=== PATIENT | male | born 1985 | race African-American/Black ===

== ENCOUNTER 2016-12-04 06:47 | Emergency (ER) | payer BC ==
[~2016-12-04] VITALS: Ht 188 cm; Wt 145.1 kg
[2016-12-04 07:15] VITALS: BP 175/111
[2016-12-04] MEDS ORDERED: TRAM-29 PO (07:32)
[2016-12-04] MEDS ORDERED: SULF1TAB24 PO (07:32)
--- NOTE | 2016-12-04 07:32 | PHYS DOC ---
Past Medical History Past Medical History: Hypertension Additional Past Medical Histor: SLEEP APNEA Past Surgical History: No Surgical History Smoking: Less than 1pk/day Alcohol Use: None Drug Use: None Adult General Chief Complaint Chief Complaint: OTHER COMPLAINTS HPI HPI Patient is a 31 year old male who presents with an abscess on the back of his neck for the last 3-4 days. He states that his fiance tried to open it, but only blood came out. He denies any fever or spontaneous drainage from the wound. He has had abscesses in the past, but states that this one is different, because it feels hard without a soft spot or head to open. He does not have a PCP. Review of Systems Review of Systems Constitutional: Denies fever or chills. [] Musculoskeletal: Denies back pain or joint pain. [] Integument: Denies rash or skin lesions. Reports neck abscess. Neurologic: Denies headache, focal weakness or sensory changes. [] Allergies Allergies Allergies Coded Allergies Type Severity Reaction Last Updated Verified No Known Drug Allergies 09/13/15 No Physical Exam Physical Exam Constitutional: Well developed, well nourished, no acute distress, non-toxic appearance. [] HENT: Normocephalic, atraumatic, oropharynx moist. [] Eyes: PERRLA, EOMI, conjunctiva normal, no discharge. [] Neck: Normal range of motion, left posterior tenderness, supple, no stridor. [] Skin: Warm, dry, no erythema, no rash. There is a 2cm indurated abscess on the left posterior neck without fluctuance or surrounding erythema. Back: No midline tenderness, no CVA tenderness. [] Extremities: No tenderness, ROM intact, no edema. Distal pulses equal bilaterally. [] Neurologic: Alert and oriented X 3, normal motor function, normal sensory function, no focal deficits noted. [] Psychologic: Affect normal, judgement normal, mood normal. [] Current Patient Data Vital Signs Vital Signs Date Time Temp Pulse Resp B/P Pulse Ox O2 Delivery O2 Flow Rate FiO2 12/04/16 07:15 97.9 72 20 99 Room Air 97.9 EKG EKG [] Radiology/Procedures Radiology/Procedures [] Course & Med Decision Making Course & Med Decision Making Pertinent Labs and Imaging studies reviewed. (See chart for details) [] Dragon Disclaimer Dragon Disclaimer This electronic medical record was generated, in whole or in part, using a voice recognition dictation system. Departure Departure Impression: Primary Impression: Neck abscess Disposition: 01 HOME, SELF-CARE Condition: STABLE Referrals: NO PCP (PCP) Patient Instructions: Abscess, [id number] Additional Instructions: Your abscess does not appear to be ready to open today. Please complete all of the prescribed antibiotics, even if the wound is improving. Please apply warm compresses to the wound to encourage it to drain. Follow up with a primary care provider or return to the emergency department if the wound is not improving after 2-3 days of treatment, if it is getting worse, or if you have any other new or concerning symptoms. Scripts Tramadol Hcl (Ultram)50 Mg [id number] Mg PO Q6H PRN PAIN #20 TAB Prov:ARSALAN JADE 12/04/16 Sulfamethoxazole/Trimethoprim (Bactrim Ds Tablet)1 Each Tablet1 Tab PO BID 10 Days Prov:ARSALAN JADE 12/04/16 ARSALAN JADE Dec 04, 2016 07:32
== END 2016-12-04 07:44 | disposition home or self-care (01) ==
LOC: ER 06:47
DX: L02.11 Cutaneous abscess of neck (principal); I10 Essential (primary) hypertension; G47.30 Sleep apnea, unspecified; F17.200 Nicotine dependence, unspecified, uncomplicated
CPT/HCPCS: 99283

== ENCOUNTER 2017-02-13 06:08 | Emergency (ER) | payer BC ==
[~2017-02-13] VITALS: Ht 188 cm; Wt 122.5 kg
[~2017-02-13 06:08] MED LIST: SULF1TAB24 PO; TRAM-29 PO
[2017-02-13 06:22] VITALS: BP 165/94
[2017-02-13] MEDS ORDERED: LIDOCAINE 1% / SOD BICARB 8.4% 20 ML VIAL. IJ ONE ×2 (06:30→06:45)
[2017-02-13] MEDS ORDERED: HYDR-971 PO (06:36)
[2017-02-13] MEDS ORDERED: SULF1TAB24 PO (06:36)
--- NOTE | 2017-02-13 06:37 | PHYS DOC ---
Past Medical History Past Medical History: Hypertension Additional Past Medical Histor: SLEEP APNEA Past Surgical History: No Surgical History Alcohol Use: None Drug Use: None Adult General Chief Complaint Chief Complaint: ABSCESS HPI HPI Patient is a 31 year old male who presents with abscess to his neck. He states he's had this for several months he was treated with antibiotics a couple months ago and then last night he noticed additional swelling and pain over the site. Denies any fevers chills nausea vomiting. He is unsure when his last tetanus shot was but he thinks his been greater than 5 years. Review of Systems Review of Systems Constitutional: Denies fever or chills [] Eyes: Denies change in visual acuity, redness, or eye pain [] HENT: Denies nasal congestion or sore throat [] Respiratory: Denies cough or shortness of breath [] Cardiovascular: No additional information not addressed in HPI [] GI: Denies abdominal pain, nausea, vomiting, bloody stools or diarrhea [] : Denies dysuria or hematuria [] Musculoskeletal: Denies back pain or joint pain [] Integument: Positive for abscess on left side and neck Neurologic: Denies headache, focal weakness or sensory changes [] Endocrine: Denies polyuria or polydipsia [] Current Medications Current Medications Current Medications Medications (Trade) Dose Ordered Sig/Charly Start Time Stop Time Status Last Admin Dose Admin Diphtheria/ Tetanus/Acell Pertussis (Boostrix) 0.5 ml ONCE ONCE 02/13/17 06:45 02/13/17 06:46 DC 02/13/17 06:40 0.5 ML Lidocaine/Sodium Bicarbonate (Buffered Lidocaine 1%) 20 ml 1X ONCE 02/13/17 06:45 02/13/17 06:46 DC 02/13/17 06:35 20 ML Allergies Allergies Allergies Coded Allergies Type Severity Reaction Last Updated Verified No Known Drug Allergies 09/13/15 No Physical Exam Physical Exam Constitutional: Well developed, well nourished, no acute distress, non-toxic appearance. [] HENT: Normocephalic, atraumatic, bilateral external ears normal, oropharynx moist, no oral exudates, nose normal. [] Eyes: PERRLA, EOMI, conjunctiva normal, no discharge. [] Neck: Normal range of motion, no tenderness, supple, no stridor. [] Cardiovascular:Heart rate regular rhythm, no murmur [] Lungs & Thorax: Bilateral breath sounds clear to auscultation [] Abdomen: Bowel sounds normal, soft, no tenderness, no masses, no pulsatile masses. [] Skin: 2 x 2 centimeter erythematous fluctuant mass on the left lower neck Back: No tenderness, no CVA tenderness. [] Extremities: No tenderness, no cyanosis, no clubbing, ROM intact, no edema. [] Neurologic: Alert and oriented X 3, normal motor function, normal sensory function, no focal deficits noted. [] Psychologic: Affect normal, judgement normal, mood normal. [] Current Patient Data Vital Signs Vital Signs Date Time Temp Pulse Resp B/P (MAP) Pulse Ox O2 Delivery O2 Flow Rate FiO2 02/13/17 06:22 98.6 71 18 94 Room Air 98.6 EKG EKG [] Radiology/Procedures Radiology/Procedures [] Impressions: soft tissue Abscess of neck Course & Med Decision Making Course & Med Decision Making Pertinent Labs and Imaging studies reviewed. (See chart for details) Abscess was drained and packed with iodoform gauze, patient being discharged with Beltrami and Bactrim for 7 days. Return precautions given. He is instructed return ER for 2 days for wound check. His tetanus was updated. Dragon Disclaimer Dragon Disclaimer This electronic medical record was generated, in whole or in part, using a voice recognition dictation system. Departure Departure Impression: Primary Impression: Neck abscess Disposition: 01 HOME, SELF-CARE Condition: STABLE Referrals: NO PCP (PCP) Patient Instructions: Abscess, Care After Additional Instructions: We drained and packed your abscess. You will need to leave and the drain material for 2 days and then return to the ER for reevaluation. We might need to open the abscess again and repack it however at that time we will make that determination. Your being discharged with antibiotics for an days and pain medicine. If he develops high fevers, pain or other concerns please return the ER sooner. In approximately 2 weeks after everything's completely healed, you can use Hibiclens as a body wash to help prevent this. You apply it in the shower as regular soap and let it soak for approximately 5-10 minutes and then wash it off he can do this every other day for 3 days in a row. You can purchases this at your local pharmacy. Scripts Sulfamethoxazole/Trimethoprim (BACTRIM DS TABLET) 1 Each Tablet 1 TAB PO BID, #14 TAB Prov: BRYANNA SUGGS MD 02/13/17 Hydrocodone/Apap 5-325 (NORCO 5-325 TABLET) 1 Each Tablet 1-2 TAB PO Q6HRS, #15 TAB Prov: BRYANNA SUGGS MD 02/13/17 Incision and Drainage Indication: abscess Procedure: The patient was positioned appropriately. Local anesthesia was for lidocaine. An incision was then made over the apex of the lesion and 5 ML's of purulent material was expressed. The drainage cavity was irrigated and packed with sterile gauze. The patients tetanus status updated as needed. The patient tolerated the procedure well. Complications: none. BRYANNA SUGGS MD February 13, 2017 06:37
[2017-02-13] MEDS ORDERED: DIPHTH,PERTUSS(ACELL),TET TOX 0.5 ML DISP.SYRIN. VAX IM ONE (06:45)
== END 2017-02-13 06:59 | disposition home or self-care (01) ==
LOC: ER 06:08
DX: L02.11 Cutaneous abscess of neck (principal); I10 Essential (primary) hypertension; G47.30 Sleep apnea, unspecified
CPT/HCPCS: 10060; 87070; 87205; 90471; 90715; 99284-25

== ENCOUNTER 2017-02-16 17:31 | Emergency (ER) | payer BC ==
[~2017-02-16] VITALS: Ht 190.5 cm; Wt 122.5 kg
[~2017-02-16 17:31] MED LIST changes: +HYDR-971 PO
[2017-02-16 18:05] VITALS: BP 152/98
--- NOTE | 2017-02-16 18:58 | PHYS DOC ---
Past Medical History Past Medical History: Hypertension Additional Past Medical Histor: SLEEP APNEA Past Surgical History: No Surgical History Alcohol Use: None Drug Use: None Adult General Chief Complaint Chief Complaint: WOUND CHECK HPI HPI Patient is a 31 year old male with history of hypertension who presents with left lateral neck abscess that was drained 3 days ago and is here for wound check. Patient states she is on antibiotics. Denies any issues with the abscess. Review of Systems Review of Systems Constitutional: Denies fever or chills [] Eyes: Denies change in visual acuity, redness, or eye pain [] HENT: Denies nasal congestion or sore throat [] Musculoskeletal: Denies back pain or joint pain [] Integument: left lateral neck abscess Neurologic: Denies headache, focal weakness or sensory changes [] Endocrine: Denies polyuria or polydipsia [] Allergies Allergies Allergies Coded Allergies Type Severity Reaction Last Updated Verified No Known Drug Allergies 09/13/15 No Physical Exam Physical Exam Constitutional: Well developed, well nourished, no acute distress, non-toxic appearance. [] HENT: Normocephalic, atraumatic, bilateral external ears normal, oropharynx moist, no oral exudates, nose normal. [] Skin: Left lateral neck with an open abscess with packing. The abscess is still draining. I did squeeze more pus from the abscess. Back: No tenderness, no CVA tenderness. [] Extremities: No tenderness, no cyanosis, no clubbing, ROM intact, no edema. [] Neurologic: Alert and oriented X 3, normal motor function, normal sensory function, no focal deficits noted. [] Psychologic: Affect normal, judgement normal, mood normal. [] Current Patient Data Vital Signs Vital Signs Date Time Temp Pulse Resp B/P (MAP) Pulse Ox O2 Delivery O2 Flow Rate FiO2 02/16/17 18:05 99.0 78 18 98 Room Air 99.0 EKG EKG [] Radiology/Procedures Radiology/Procedures Indication: abscess of the left lateral neck Procedure: The patient was positioned appropriately. Local anesthesia was N/A. mild amount of bloody material was expressed from the wound. The drainage cavity was irrigated and packed with sterile gauze. The patients tetanus status updated as needed. The patient tolerated the procedure well. Complications: none.[] Course & Med Decision Making Course & Med Decision Making Pertinent Labs and Imaging studies reviewed. (See chart for details) Patient is in the ED for wound check for an abscess that was drained 3 days ago. The abscess was still draining on arrival to the ED. I removed the packing and re- drained the area and repacked it again. He is to follow-up with the ED in 2 days for wound check. He is to continue taking his antibiotics. Dragon Disclaimer Dragon Disclaimer This electronic medical record was generated, in whole or in part, using a voice recognition dictation system. Departure Departure Impression: Primary Impression: Wound check, abscess Disposition: 01 HOME, SELF-CARE Condition: STABLE Referrals: NO PCP (PCP) Follow-up with the emergency room in 2 days for wound check and packing removal Patient Instructions: Abscess, Care After Additional Instructions: You have an abscess on the left lateral neck that was drained 3 days ago. We did repack it today. Keep the area clean and dry. Come back in the ED in 2 days and will remove the packing. MIKI MORIN APRN February 16, 2017 18:58
== END 2017-02-16 19:04 | disposition home or self-care (01) ==
LOC: ER 17:31
DX: L02.11 Cutaneous abscess of neck (principal); I10 Essential (primary) hypertension; G47.30 Sleep apnea, unspecified
CPT/HCPCS: 10060; 96372; 99283-25

== ENCOUNTER 2017-04-15 15:56 | Emergency (ER) | payer BC ==
[~2017-04-15] VITALS: Ht 188 cm; Wt 122.5 kg
[~2017-04-15 15:56] MED LIST changes: -TRAM-29 PO; +TRAM-48 PO
[2017-04-15 16:03] VITALS: BP 145/84
[2017-04-15] MEDS ORDERED: LIDOCAINE 1% PF 2 ML VIAL. INJ ONE (16:15)
--- NOTE | 2017-04-15 16:21 | PHYS DOC ---
Past Medical History Past Medical History: Hypertension Additional Past Medical Histor: SLEEP APNEA Past Surgical History: No Surgical History Alcohol Use: None Drug Use: None Adult General Chief Complaint Chief Complaint: LACERATION/AVULSION HPI HPI Patient is a 31 year old male presents to the emergency department with complaints laceration left hand. Patient states he was using a perlite grinder to english concrete in his home when he cut his hand on the perlite grinder sustaining laceration. Assist obtained prior to arrival. Review of Systems Review of Systems Integument: Laceration left hand Current Medications Current Medications Current Medications Medications (Trade) Dose Ordered Sig/Charly Start Time Stop Time Status Last Admin Dose Admin Lidocaine HCl (Xylocaine-Mpf 1% Vial) 2 ml 1X ONCE 04/15/17 16:15 04/15/17 16:16 DC 04/15/17 16:09 2 ML Allergies Allergies Allergies Coded Allergies Type Severity Reaction Last Updated Verified No Known Drug Allergies 09/13/15 No Physical Exam Physical Exam Skin: Left hand, third MCP, 3 cm partial thickness laceration. Patient has full range of motion all digits without difficulty. Neurovascular intact distally. He has no bony tenderness on exam. Current Patient Data Vital Signs Vital Signs Date Time Temp Pulse Resp B/P (MAP) Pulse Ox O2 Delivery O2 Flow Rate FiO2 04/15/17 16:03 99.4 94 20 93 Room Air 99.4 EKG EKG [] Radiology/Procedures Radiology/Procedures Procedure note: Left hand laceration anesthetized with 1% lidocaine, 2 mL. Patient's hand was [] scrubbed with Betadine normal saline copiously irrigated with Betadine and normal saline. Wound edges were approximated with 3-0 Ethilon #5 simple interrupted sutures. The hand was dressed with a bulky bandage. Patient tolerated procedure well. Course & Med Decision Making Course & Med Decision Making Pertinent Labs and Imaging studies reviewed. (See chart for details) [] Dragon Disclaimer Dragon Disclaimer This electronic medical record was generated, in whole or in part, using a voice recognition dictation system. Departure Departure Impression: Primary Impression: Hand laceration Disposition: HOME, SELF-CARE Condition: STABLE Referrals: NO PCP (PCP) [facility] Patient Instructions: Sutured Wound Care Additional Instructions: Return to the emergency department in 10 days for suture removal. He may also follow-up with her primary care provider to have sutures removed. Problem Qualifiers Primary Impression: Hand laceration Encounter type: initial encounter Foreign body presence: without foreign body Laterality: left Qualified Codes: S61.412A - Laceration without foreign body of left hand, initial encounter TRAVIS RODRÍGUEZ [employer] Apr 15, 2017 16:21
== END 2017-04-15 16:27 | disposition home or self-care (01) ==
LOC: ER 15:56
DX: S61.412A Laceration without foreign body of left hand, initial encounter (principal); I10 Essential (primary) hypertension; G47.30 Sleep apnea, unspecified; W29.8XXA Contact with other powered hand tools and household machinery, initial encounter; Y93.89 Activity, other specified; Y99.8 Other external cause status; Y92.89 Other specified places as the place of occurrence of the external cause
CPT/HCPCS: 12002; 99283-25

== ENCOUNTER 2017-04-20 13:36 | Emergency (ER) | payer BC ==
[~2017-04-20] VITALS: Ht 188 cm; Wt 122.5 kg
[2017-04-20 14:42] LABS: BILIRUBIN,URINE NEGATIVE (NEG); GLUCOSE,URINE NEGATIVE (NEG); NITRITE,URINE NEGATIVE (NEG); PH,URINE 5.5; PROTEIN,URINE NEGATIVE (NEG-TRACE); UROBILINOGEN,URINE 0.2 mg/dL (0.2 mg/dL)
[2017-04-20 14:54] LABS: BACTERIA,URINE 0 /HPF (0-FEW); RBC,URINE 0 /HPF (0-2); WBC,URINE 0 /HPF (0-4)
[2017-04-20 15:29] LABS: BASO % 0 % (0-3); EOS % 2 % (0-3); HEMATOCRIT 44.6 % (39.0-53.0); HEMOGLOBIN 14.8 g/dL (13.0-17.5); LYMPH # 1.5 x10^3/uL (1.0-4.8); LYMPH % 23 % (24-48); MEAN CORPUSCULAR HEMOGLOBIN 29 pg (25-35); MEAN CORPUSCULAR HGB CONC 33 g/dL (31-37); MEAN CORPUSCULAR VOLUME 89 fL (79-100); MONO % 7 % (0-9); NEUT % 68 % (31-73); PLATELET COUNT 227 x10^3/uL (140-400); RED BLOOD COUNT 5.05 x10^6/uL (4.30-5.70); RED CELL DISTRIBUTION WIDTH 14.9 % (11.5-14.5); WHITE BLOOD COUNT 6.7 x10^3/uL (4.0-11.0)
[2017-04-20] MEDS ORDERED: IV NORMAL SALINE 1000ML BAG 1,000 ML IV SCH (15:30)
[2017-04-20 15:44] LABS: CALCIUM 8.8 mg/dL (8.5-10.1); CREATININE 1.3 mg/dL (0.7-1.3); GFR 76.9; POTASSIUM 3.6 mmol/L (3.5-5.1)
[2017-04-20 15:50] LABS: ALBUMIN 3.8 g/dL (3.4-5.0); ALBUMIN/GLOBULIN RATIO 0.9 (1.0-1.7); TOTAL BILIRUBIN 0.7 mg/dL (0.2-1.0); TOTAL PROTEIN 8.2 g/dL (6.4-8.2)
--- NOTE | 2017-04-20 16:17 | RAD ---
CT ABDOMEN AND PELVIS WITHOUT IV CONTRAST History: Midline abdominal pain. Comparison: None. Technique: Helical CT of the abdomen and pelvis was performed from the lung bases through the ischial tuberosities. Axial and coronal reconstructions were obtained. Abdomen Findings: The visualized lung bases are clear. Evaluation of visceral organs is limited without intravenous contrast. Cholelithiasis, including a stone in the gallbladder neck. No gallbladder wall thickening or pericholecystic fluid. 1.9 x 1.1 cm left adrenal medial limb nodule. 1.4 x 0.7 cm left adrenal lateral limb nodule. 2.7 x 1.5 cm right adrenal nodule. The liver is enlarged measuring 20.0 cm. It is otherwise normal. The spleen is normal. The pancreas is normal. Bilateral kidneys do not demonstrate focal abnormality. There is no hydronephrosis. Visualized loops of large and small bowel are normal. There is no evidence of bowel obstruction. The appendix is seen coursing into a right inguinal hernia (Amyand hernia). The appendix is borderline dilated but there are no periappendiceal inflammatory changes. Fat-containing left inguinal hernia. Fat stranding within a broad-based fat-containing umbilical hernia. There is no significant abdominal adenopathy. The abdominal aorta is normal in caliber. Pelvis findings: Urinary bladder is underdistended limiting evaluation. There is no free fluid. There is no significant pelvic or inguinal adenopathy. There is no acute bony abnormality. IMPRESSION: 1. Fat stranding within a broad-based fat-containing umbilical hernia. Findings can be seen with strangulated fat infarction.. 2. Right inguinal hernia containing the appendix (Amyand hernia). The appendix is borderline dilated but there are no periappendiceal inflammatory changes. Recommend clinical correlation with physical exam for point tenderness in this region. 3. Cholelithiasis, including a stone in the gallbladder neck. No gallbladder wall thickening or pericholecystic fluid. 4. Bilateral adrenal nodules which are incompletely evaluated on this noncontrast exam. Recommend adrenal protocol CT abdomen or MRI for full evaluation. 5. Hepatomegaly. CRITICAL findings: These findings were discussed with Dr. Ashraf via telephone at 4:14 PM on 04/20/2017. PQRS Compliance Statement: One or more of the following individualized dose reduction techniques were utilized for this examination: 1. Automated exposure control 2. Adjustment of the mA and/or kV according to patient size 3. Use of iterative reconstruction technique
--- NOTE | 2017-04-20 16:53 | PHYS DOC ---
Past Medical History Past Medical History: Hypertension Additional Past Medical Histor: SLEEP APNEA Past Surgical History: Other Additional Past Surgical Histo: left index finger Alcohol Use: Rarely Drug Use: None Adult General Chief Complaint Chief Complaint: ABDOMINAL PAIN HPI HPI Patient is a 31 year old male who presents ambulatory to the ED with the complaint of abdominal pain for 3 or 4 days. The pain will start in the middle of his abdomen and radiate out to both sides and around to his back. It starts as a mild pain that worsens to about an 8 last about 30 minutes and then goes away. With the pain he has no nausea or vomiting. He did have a couple of episodes of loose stools 2 nights ago but this has not been persistent. No blood in his stool or black stools. He's never had pain like this before. He's also had a couple episodes where he felt like he needed to urinate and then he couldn't urinate but then this morning he needed to urinate and "went for 3 minutes straight". No dysuria. His urine is "orange" in color. He also had a concern that last night he was unable to get an erection temporarily. Patient does not take any chronic medications. 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 The heat index is been around 100 lately. PCP none Review of Systems Review of Systems Constitutional: Denies fever or chills [] Eyes: Denies change in visual acuity, redness, or eye pain [] HENT: Denies nasal congestion or sore throat [] Respiratory: Denies cough or shortness of breath [] Cardiovascular: Denies chest pain GI: As in history of present illness : As in history of present illness Musculoskeletal: Denies musculoskeletal back pain or joint pain [] Integument: Denies rash or skin lesions [] Neurologic: Denies headache, focal weakness or sensory changes [] Current Medications Current Medications Current Medications Medications (Trade) Dose Ordered Sig/Charly Start Time Stop Time Status Last Admin Dose Admin Ketorolac Tromethamine (Toradol) 30 mg 1X ONCE 04/20/17 17:00 04/20/17 17:01 DC 04/20/17 17:06 30 MG Sodium Chloride 1,000 ml @ 1,000 mls/hr Q1H 04/20/17 15:30 04/20/17 16:29 DC 04/20/17 15:21 1,000 MLS/HR Allergies Allergies Allergies Coded Allergies Type Severity Reaction Last Updated Verified No Known Drug Allergies 09/13/15 No Physical Exam Physical Exam Constitutional: Well developed, well nourished, no acute distress, non-toxic appearance. Alert, mentating normally, no acute distress. HENT: Normocephalic, atraumatic, bilateral external ears normal, nose normal. [ ] Eyes: conjunctiva normal, no discharge. [] Neck: Normal range of motion, no stridor. [] Cardiovascular:Heart rate regular rhythm, no murmur [] Lungs & Thorax: Bilateral breath sounds clear to auscultation [] Abdomen: Moderately obese, soft, entirely nontender to palpation, no masses, no pulsatile mass, no rebound or guarding. A relatively small, reducible umbilical hernia is palpable but nontender. Skin: Warm, dry, no erythema, no rash. [] Extremities: No tenderness, no cyanosis, no clubbing, ROM intact, no edema. [] Neurologic: Alert and oriented X 3, normal motor function, normal sensory function, no focal deficits noted. [] Current Patient Data Vital Signs Vital Signs Date Time Temp Pulse Resp B/P (MAP) Pulse Ox O2 Delivery O2 Flow Rate FiO2 04/20/17 17:06 60 143/84 (103) 97 Room Air 04/20/17 16:36 20 04/20/17 13:50 98.2 98.2 Lab Values Laboratory Tests Test 04/20/17 14:20 04/20/17 15:10 Urine Collection Type Unknown Urine Color Yellow Urine Clarity Cloudy Urine pH 5.5 Urine Specific [place] 1.025 Urine Protein Negative mg/dL (NEG-TRACE) Urine Glucose (UA) Negative mg/dL (NEG) Urine Ketones (Stick) Negative mg/dL (NEG) Urine Blood Small (NEG) Urine Nitrite Negative (NEG) Urine Bilirubin Negative (NEG) Urine Urobilinogen Dipstick 0.2 mg/dL (0.2 mg/dL) Urine Leukocyte Esterase Negative (NEG) Urine RBC 0 /HPF (0-2) Urine WBC 0 /HPF (0-4) Urine Amorphous Sediment Present /HPF Urine Bacteria 0 /HPF (0-FEW) Urine Hyaline Casts Moderate /HPF Urine Mucus Marked /LPF White Blood Count 6.7 x10^3/uL (4.0-11.0) Red Blood Count 5.05 x10^6/uL (4.30-5.70) Hemoglobin 14.8 g/dL (13.0-17.5) Hematocrit 44.6 % (39.0-53.0) Mean Corpuscular Volume 89 fL (79-100) Mean Corpuscular Hemoglobin 29 pg (25-35) Mean Corpuscular Hemoglobin Concent 33 g/dL (31-37) Red Cell Distribution Width 14.9 % (11.5-14.5) H Platelet Count 227 x10^3/uL (140-400) Neutrophils (%) (Auto) 68 % (31-73) Lymphocytes (%) (Auto) 23 % (24-48) L Monocytes (%) (Auto) 7 % (0-9) Eosinophils (%) (Auto) 2 % (0-3) Basophils (%) (Auto) 0 % (0-3) Neutrophils # (Auto) 4.5 x10^3uL (1.8-7.7) Lymphocytes # (Auto) 1.5 x10^3/uL (1.0-4.8) Monocytes # (Auto) 0.5 x10^3/uL (0.0-1.1) Eosinophils # (Auto) 0.1 x10^3/uL (0.0-0.7) Basophils # (Auto) 0.0 x10^3/uL (0.0-0.2) Sodium Level 143 mmol/L (136-145) Potassium Level 3.6 mmol/L (3.5-5.1) Chloride Level 102 mmol/L (98-107) Carbon Dioxide Level 35 mmol/L (21-32) H Anion Gap 6 (6-14) Blood Urea Nitrogen 18 mg/dL (8-26) Creatinine 1.3 mg/dL (0.7-1.3) Estimated GFR (Cockcroft-Gault) 76.9 BUN/Creatinine Ratio 14 (6-20) Glucose Level 101 mg/dL (70-99) H Calcium Level 8.8 mg/dL (8.5-10.1) Total Bilirubin 0.7 mg/dL (0.2-1.0) Aspartate Amino Transferase (AST) 39 U/L (15-37) H Alanine Aminotransferase (ALT) 30 U/L (16-63) Alkaline Phosphatase 74 U/L (46-116) Total Protein 8.2 g/dL (6.4-8.2) Albumin 3.8 g/dL (3.4-5.0) Albumin/Globulin Ratio 0.9 (1.0-1.7) L Lipase 104 U/L (73-393) Laboratory Tests 04/20/17 15:10 Laboratory Tests 04/20/17 15:10 EKG EKG [] Radiology/Procedures Radiology/Procedures CT scan of the abdomen and pelvis read by the radiologist who called me to discuss the results. The patient has an umbilical hernia with a small amount of fat contained in it, but no bowel. It appears that there may be some strangulation of the fat in the umbilical hernia. There is no evidence of bowel obstruction. There is also a right inguinal hernia that does not appear acute or strangulated but does interestingly have the appendix in the right inguinal hernia. Overall the CT scan is benign without acute findings. [] Course & Med Decision Making Course & Med Decision Making Pertinent Labs and Imaging studies reviewed. (See chart for details) 31-year-old male presents with episodic abdominal pain that wraps around his abdomen from the midline. CT scan shows likely strangulated fat in a small umbilical hernia which is likely the cause of his pain in my opinion. The patient rested comfortably in the ED in no acute distress. Discussed the case with Dr. Manning, general surgery. We agreed that the patient does not require any kind of emergent surgical intervention and does not require admission. He will be glad to see the patient back in the office to follow up his newly diagnosed hernias. I discussed the situation with the patient. He is comfortable with outpatient follow-up. He was aware of his umbilical hernia but not of his inguinal hernia. He states he has had more of a bulge in his umbilical hernia from time to time but he is always able to easily reduce it by laying down. Return precautions were given. [] Dragon Disclaimer Dragon Disclaimer This electronic medical record was generated, in whole or in part, using a voice recognition dictation system. Departure Departure Impression: Primary Impression: Abdominal pain Additional Impressions: Umbilical hernia Right inguinal hernia Disposition: HOME, SELF-CARE Condition: STABLE Referrals: NO PCP (PCP) DAVIS MANNING MD Patient Instructions: Hernia, [id number] Additional Instructions: As we discussed, your CT scan showed an umbilical hernia with fat in the hernia , which is likely the cause of your pain that is coming and going. This is not particularly dangerous but will hurt off and on for several days. Use a heating pad and also ibuprofen 800 mg every 8 hours for pain and inflammation. Also, your CT scan showed a right inguinal hernia. This is a hernia in the groin area. This did not seem to be causing any problem today. Both of these hernias can cause a problem where your intestine can get stuck and can be very serious. For this reason, you need to follow-up with the cycle specialist to talk about whether they recommend fixing the hernias. Problem Qualifiers DELICIA MADDEN MD Apr 20, 2017 16:53
[2017-04-20] MEDS ORDERED: KETOROLAC TROMETHAMINE 30 MG/ML INJ. IV ONE (17:00)
[2017-04-20 17:06] VITALS: BP 143/84
== END 2017-04-20 17:10 | disposition home or self-care (01) ==
LOC: ER 13:36
DX: K42.9 Umbilical hernia without obstruction or gangrene (principal); K40.90 Unilateral inguinal hernia, without obstruction or gangrene, not specified as recurrent; I10 Essential (primary) hypertension
CPT/HCPCS: 36415; 74176; 80053; 81001; 83690; 85027; 96361; 96374; 99285; J1885; J7030

== ENCOUNTER 2017-08-09 07:45 | Emergency (ER) | payer BC ==
[2017-08-09 07:50] VITALS: BP 168/97
[2017-08-09] MEDS ORDERED: CARB-117 OT (08:10)
--- NOTE | 2017-08-09 08:10 | PHYS DOC ---
Past Medical History Past Medical History: Hypertension Additional Past Medical Histor: SLEEP APNEA Past Surgical History: Other Additional Past Surgical Histo: left index finger Alcohol Use: Rarely Drug Use: None Adult General Chief Complaint Chief Complaint: EARACHE/EAR PAIN [facility] HPI Patient is a 31 year old male presents to the ED complaining of right ear pain x 2 days. States he feels like his ears clogged. History of cerumen impaction. States his ear feels full. Denies fever, headache, vision changes, nausea/ vomiting, sore throat, cough, chest pain or shortness of breath. Review of Systems Review of Systems Constitutional: Denies fever or chills [] Eyes: Denies change in visual acuity, redness, or eye pain [] HENT: Complains of ear pain. Denies nasal congestion or sore throat [] Respiratory: Denies cough or shortness of breath [] Cardiovascular: No additional information not addressed in HPI [] GI: Denies abdominal pain, nausea, vomiting, bloody stools or diarrhea [] : Denies dysuria or hematuria [] Musculoskeletal: Denies back pain or joint pain [] Integument: Denies rash or skin lesions [] Neurologic: Denies headache, focal weakness or sensory changes [] Endocrine: Denies polyuria or polydipsia [] All other systems were reviewed and found to be within normal limits, except as documented in this note. Allergies Allergies Allergies Coded Allergies Type Severity Reaction Last Updated Verified No Known Drug Allergies 09/13/15 No Physical Exam Physical Exam Constitutional: Well developed, well nourished, no acute distress, non-toxic appearance. [] HENT: Normocephalic, atraumatic, bilateral external ears normal, RIGHT EAR CERUMEN IMPACTION. oropharynx moist, no oral exudates, nose normal. [] Eyes: PERRLA, EOMI, conjunctiva normal, no discharge. [] Neck: Normal range of motion, no tenderness, supple, no stridor. [] Cardiovascular:Heart rate regular rhythm, no murmur [] Lungs & Thorax: Bilateral breath sounds clear to auscultation [] Abdomen: Bowel sounds normal, soft, no tenderness, no masses, no pulsatile masses. [] Skin: Warm, dry, no erythema, no rash. [] Back: No tenderness, no CVA tenderness. [] Extremities: No tenderness, no cyanosis, no clubbing, ROM intact, no edema. [] Neurologic: Alert and oriented X 3, normal motor function, normal sensory function, no focal deficits noted. [] Psychologic: Affect normal, judgement normal, mood normal. [] Current Patient Data Vital Signs Vital Signs Date Time Temp Pulse Resp B/P (MAP) Pulse Ox O2 Delivery O2 Flow Rate FiO2 08/09/17 07:50 97.8 76 16 97 Room Air 97.8 EKG EKG [] Radiology/Procedures Radiology/Procedures [] Course & Med Decision Making Course & Med Decision Making Pertinent Labs and Imaging studies reviewed. (See chart for details) [] Dragon Disclaimer Dragon Disclaimer This electronic medical record was generated, in whole or in part, using a voice recognition dictation system. Departure Departure Impression: Primary Impression: Cerumen impaction Disposition: 01 HOME, SELF-CARE Condition: STABLE Referrals: NO PCP (PCP) EMIGDIO POOLE MD Patient Instructions: Cerumen Impaction Scripts Carbamide Peroxide (Earwax Treatment Drops) 15 Ml Drops 15 ML OT 5XDAY for 4 Days, #1 DROP 5-10gtt in ear BID Prov: LESTER ARNETT 08/09/17 LESTER ARNETT Aug 09, 2017 08:10
== END 2017-08-09 08:22 | disposition home or self-care (01) ==
LOC: ER 07:45
DX: H61.21 Impacted cerumen, right ear (principal); I10 Essential (primary) hypertension
CPT/HCPCS: 99283

== ENCOUNTER 2017-11-09 17:31 | Emergency (ER) | payer BC | END 2017-11-09 20:04 | disposition home or self-care (01) | LOC: ER 20:04 | DX: S66.911A Strain of unspecified muscle, fascia and tendon at wrist and hand level, right hand, initial encounter (principal); I10 Essential (primary) hypertension; G47.30 Sleep apnea, unspecified; X58.XXXA Exposure to other specified factors, initial encounter; Y93.89 Activity, other specified; Y92.69 Other specified industrial and construction area as the place of occurrence of the external cause; Y99.8 Other external cause status | CPT/HCPCS: 73110; 99284 ==

== ENCOUNTER 2018-10-09 11:30 | Emergency (ER) | payer BC ==
[~2018-10-09] VITALS: Ht 188 cm; Wt 114.3 kg
[~2018-10-09 11:30] MED LIST changes: +CARB-117 OT; +HYDR-3164 PO; -HYDR-971 PO
[2018-10-09 11:45] VITALS: BP 146/87
[2018-10-09] MEDS ORDERED: SULF1TAB24 PO (12:29)
--- NOTE | 2018-10-09 12:30 | PHYS DOC ---
Past Medical History Past Medical History: Hypertension Additional Past Medical Histor: SLEEP APNEA Past Surgical History: Other Additional Past Surgical Histo: left index finger Alcohol Use: Rarely Drug Use: None Adult General Chief Complaint Chief Complaint: ABSCESS HPI HPI Patient is a 33 year old male with history of a patient who presents with an abscess on his pubic region that he has had for 3 years. Patient denies any drainage from the area. Denies any fever, denies any nausea vomiting. Review of Systems Review of Systems Constitutional: Denies fever or chills [] Musculoskeletal: Denies back pain or joint pain [] Integument: abscess on his pubic Neurologic: Denies headache, focal weakness or sensory changes [] All other systems were reviewed and found to be within normal limits, except as documented in this note. Allergies Allergies Allergies Coded Allergies Type Severity Reaction Last Updated Verified No Known Drug Allergies 09/13/15 No Physical Exam Physical Exam Constitutional: Well developed, well nourished, no acute distress, non-toxic appearance. [] Abdomen: Bowel sounds normal, soft, no tenderness, no masses, no pulsatile masses. [] Skin: Warm, dry, pubic region just below the abdominal flap with an area of induration approx. 3X1 cm with multiple scars consistent with previously drained. No drainage or redness to the area. No fluctuance. Back: No tenderness, no CVA tenderness. [] Extremities: No tenderness, no cyanosis, no clubbing, ROM intact, no edema. [] Neurologic: Alert and oriented X 3, normal motor function, normal sensory function, no focal deficits noted. [] Psychologic: Affect normal, judgement normal, mood normal. [] Current Patient Data Vital Signs Vital Signs Date Time Temp Pulse Resp B/P (MAP) Pulse Ox O2 Delivery O2 Flow Rate FiO2 10/09/18 11:45 98.1 80 16 146/87 (106) 97 Room Air 98.1 EKG EKG [] Radiology/Procedures Radiology/Procedures [] Course & Med Decision Making Course & Med Decision Making Pertinent Labs and Imaging studies reviewed. 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 There is no redness to the area today. No fluctuance. Talked to patient about I&D in the ED versus seeing a general surgeon to have them take care of this chronic abscess. Patient is not willing to have it drained in the ED. He states it's been drained multiple times before with no success because it keeps coming back. Provided him a general surgeon. Put him on Bactrim. Instructed him not to share of his pubic region with a straight razor anymore to prevent ingrown hairs. Tetanus up-to-date. Staff Physician Addendum: I was working in the ER during the course of this patient's visit. I was available for consultation as needed, but I was not directly involved in the care of this patient. Dragon Disclaimer Dragon Disclaimer This electronic medical record was generated, in whole or in part, using a voice recognition dictation system. Departure Departure Impression: Primary Impression: Abscess of pubic region Disposition: HOME, SELF-CARE Condition: STABLE Referrals: NO PCP (PCP) follow up next week TEDDY RIVERS MD Patient Instructions: Abscess Additional Instructions: You were seen with an abscess on the pubic region, contact the provided general surgeons on Thursday in follow-up. Do not shave the pubic region with a straight razor. Consider buying an electric razor. Scripts Sulfamethoxazole/Trimethoprim (BACTRIM DS TABLET) 1 Each Tablet 1 TAB PO BID, #20 TAB Prov: MIKI MORIN APRN 10/09/18 MIKI MORIN APRN Oct 09, 2018 12:30 CORA FARLEY MD Oct 09, 2018 15:34
== END 2018-10-09 12:54 | disposition home or self-care (01) ==
LOC: ER 11:30
DX: L02.211 Cutaneous abscess of abdominal wall (principal); I10 Essential (primary) hypertension; G47.30 Sleep apnea, unspecified
CPT/HCPCS: 99283

== ENCOUNTER 2018-11-23 09:56 | Inpatient (IN) | payer BC ==
[2018-11-23] VITALS (9 sets, daily range): BP systolic 110–176; BP diastolic 72–98
[~2018-11-23] VITALS: Ht 185.4 cm; Wt 121.1 kg
[2018-11-23] MEDS ORDERED: IV NORMAL SALINE 1000ML BAG 1,000 ML IV ONE (10:15)
[2018-11-23 10:25] LABS: BILIRUBIN,URINE NEGATIVE (NEG); CLARITY,URINE CLEAR; COLOR,URINE YELLOW; NITRITE,URINE NEGATIVE (NEG); PROTEIN,URINE NEGATIVE (NEG-TRACE); UROBILINOGEN,URINE 0.2 mg/dL (0.2 mg/dL)
--- NOTE | 2018-11-23 10:26 | PHYS DOC ---
Past Medical History Past Medical History: Hypertension Additional Past Medical Histor: SLEEP APNEA Past Surgical History: Other Additional Past Surgical Histo: left index finger Alcohol Use: Rarely Drug Use: None Adult General Chief Complaint Chief Complaint: ABDOMINAL PAIN HPI HPI 33-year-old male presents to ER for complaints of mid abdominal and right groin pain. Patient states around 6 AM this morning at work pain started. Patient states he has a history of hiatal and inguinal hernia has had similar pain in the past associated with the hernias. 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 Patient denies any nausea or vomiting, fever, or urinary symptoms. Patient states he did have small amount of loose stools this morning. Pt denies any OTC meds for pain. Review of Systems Review of Systems Constitutional: Denies fever or chills [] Respiratory: Denies cough or shortness of breath [] Cardiovascular: No additional information not addressed in HPI [] GI: Denies nausea, vomiting, bloody stools or diarrhea. Reports mid abd and rt groin pain : Denies dysuria or hematuria [] Musculoskeletal: Denies back pain or joint pain [] Integument: Denies rash or skin lesions [] Neurologic: Denies headache, focal weakness or sensory changes [] All other systems were reviewed and found to be within normal limits, except as documented in this note. Current Medications Current Medications Current Medications Medications (Trade) Dose Ordered Sig/Charly Start Time Stop Time Status Last Admin Dose Admin Bupivacaine HCl/ Epinephrine Bitart (Sensorcain-Mpf Epi 0.5%-[id number]) 30 ml STK-MED ONCE 11/23/18 13:18 11/23/18 13:19 DC Dexamethasone Sodium Phosphate (Decadron) 20 mg STK-MED ONCE 11/23/18 13:16 11/23/18 13:17 DC Fentanyl Citrate (Fentanyl 2ml Vial) 50 mcg PRN Q5MIN PRN 11/23/18 13:15 11/24/18 13:14 Fentanyl Citrate (Fentanyl 5ml Vial) 250 mcg STK-MED ONCE 11/23/18 13:19 11/23/18 13:20 DC Hydromorphone HCl (Dilaudid) 0.5 mg PRN Q10MIN PRN 11/23/18 13:15 11/24/18 13:14 Info (CONTRAST GIVEN -- Rx MONITORING) 1 each PRN DAILY PRN 11/23/18 11:00 11/23/18 13:12 DC Iohexol (Omnipaque 300 Mg/ml) 75 ml 1X ONCE 11/23/18 10:45 11/23/18 10:49 DC 11/23/18 10:45 75 ML Lidocaine HCl (Lidocaine Pf 2% Vial) 5 ml STK-MED ONCE 11/23/18 13:16 11/23/18 13:17 DC Lidocaine HCl (Xylocaine-Mpf 1% 2ml Vial) 2 ml PRN 1X PRN 11/23/18 13:15 11/24/18 13:14 Midazolam HCl (Versed) 2 mg STK-MED ONCE 11/23/18 13:19 11/23/18 13:20 DC Morphine Sulfate (Morphine Sulfate) 1 mg PRN Q10MIN PRN 11/23/18 13:15 11/24/18 13:14 Ondansetron HCl (Zofran) 4 mg STK-MED ONCE 11/23/18 13:16 11/23/18 13:19 DC Piperacillin Sod/ Tazobactam Sod 3.375 gm/Sodium Chloride 50 ml @ 100 mls/hr 1X ONCE 11/23/18 12:30 11/23/18 12:59 DC Prochlorperazine Edisylate (Compazine) 5 mg PACU PRN PRN 11/23/18 13:15 11/24/18 13:14 Propofol 20 ml @ As Directed STK-MED ONCE 11/23/18 13:16 11/23/18 13:17 DC Ringer's Solution 1,000 ml @ 30 mls/hr Q24H 11/23/18 13:11 11/24/18 01:10 Rocuronium [place] (Zemuron) 50 mg STK-MED ONCE 11/23/18 13:16 11/23/18 13:17 DC Sodium Chloride 1,000 ml @ 100 mls/hr Q10H 11/23/18 12:19 11/23/18 13:12 DC 11/23/18 12:48 100 MLS/HR Allergies Allergies Allergies Coded Allergies Type Severity Reaction Last Updated Verified No Known Drug Allergies 09/13/15 No Physical Exam Physical Exam Constitutional: Well developed, well nourished, no acute distress, non-toxic appearance. [] HENT: Normocephalic, atraumatic, oropharynx moist, nose normal. [] Eyes: Pupils equal, conjunctiva normal, no discharge. [] Neck: Normal range of motion, no tenderness, supple, no stridor. [] Cardiovascular: Heart rate regular rhythm, no murmur [] Lungs & Thorax: Bilateral breath sounds clear to auscultation [] Abdomen: Bowel sounds normal, soft- no distention/rigidity- tender on palp. mid umbilical without obvious hernia palpated, no rebound tenderness. No masses, no pulsatile masses. Palp. rt inguinal hernia tender on palp.- no crepitus. Gentle pressure applied- felt hernia reduce and pt reported instant relief in pain. No testicular/scrotal pain on palp. No lesions/penile discharge. Skin: Warm, dry, no erythema, no rash. [] Back: No tenderness, no CVA tenderness. [] Extremities: No tenderness, no cyanosis, no clubbing, ROM intact, no edema. [] Neurologic: Alert and oriented X 3, normal motor function, normal sensory function, no focal deficits noted. [] Psychologic: Affect normal, judgement normal, mood normal. [] Current Patient Data Vital Signs Vital Signs Date Time Temp Pulse Resp B/P (MAP) Pulse Ox O2 Delivery O2 Flow Rate FiO2 11/23/18 12:40 56 18 178/91 (120) 100 Room Air 11/23/18 10:11 98.2 98.2 Lab Values Laboratory Tests Test 11/23/18 10:06 11/23/18 10:30 Urine Collection Type Unknown Urine Color Yellow Urine Clarity Clear Urine pH 5.0 Urine Specific [place] 1.015 Urine Protein Negative mg/dL (NEG-TRACE) Urine Glucose (UA) Negative mg/dL (NEG) Urine Ketones (Stick) Negative mg/dL (NEG) Urine Blood Small (NEG) Urine Nitrite Negative (NEG) Urine Bilirubin Negative (NEG) Urine Urobilinogen Dipstick 0.2 mg/dL (0.2 mg/dL) Urine Leukocyte Esterase Negative (NEG) Urine RBC 1-2 /HPF (0-2) Urine WBC 0 /HPF (0-4) Urine Squamous Epithelial Cells Occ /LPF Urine Bacteria 0 /HPF (0-FEW) White Blood Count 5.1 x10^3/uL (4.0-11.0) Red Blood Count 4.42 x10^6/uL (4.30-5.70) Hemoglobin 13.0 g/dL (13.0-17.5) Hematocrit 39.1 % (39.0-53.0) Mean Corpuscular Volume 88 fL (79-100) Mean Corpuscular Hemoglobin 29 pg (25-35) Mean Corpuscular Hemoglobin Concent 33 g/dL (31-37) Red Cell Distribution Width 15.3 % (11.5-14.5) H Platelet Count 221 x10^3/uL (140-400) Neutrophils (%) (Auto) 63 % (31-73) Lymphocytes (%) (Auto) 27 % (24-48) Monocytes (%) (Auto) 6 % (0-9) Eosinophils (%) (Auto) 4 % (0-3) H Basophils (%) (Auto) 0 % (0-3) Neutrophils # (Auto) 3.2 x10^3uL (1.8-7.7) Lymphocytes # (Auto) 1.4 x10^3/uL (1.0-4.8) Monocytes # (Auto) 0.3 x10^3/uL (0.0-1.1) Eosinophils # (Auto) 0.2 x10^3/uL (0.0-0.7) Basophils # (Auto) 0.0 x10^3/uL (0.0-0.2) Sodium Level 140 mmol/L (136-145) Potassium Level 4.0 mmol/L (3.5-5.1) Chloride Level 104 mmol/L (98-107) Carbon Dioxide Level 30 mmol/L (21-32) Anion Gap 6 (6-14) Blood Urea Nitrogen 12 mg/dL (8-26) Creatinine 1.1 mg/dL (0.7-1.3) Estimated GFR (Cockcroft-Gault) 92.2 BUN/Creatinine Ratio 11 (6-20) Glucose Level 132 mg/dL (70-99) H Calcium Level 8.4 mg/dL (8.5-10.1) L Total Bilirubin 0.2 mg/dL (0.2-1.0) Aspartate Amino Transferase (AST) 22 U/L (15-37) Alanine Aminotransferase (ALT) 23 U/L (16-63) Alkaline Phosphatase 71 U/L (46-116) Total Protein 7.2 g/dL (6.4-8.2) Albumin 3.1 g/dL (3.4-5.0) L Albumin/Globulin Ratio 0.8 (1.0-1.7) L Laboratory Tests 11/23/18 10:30 Laboratory Tests 11/23/18 10:30 EKG EKG [] Radiology/Procedures Radiology/Procedures PROCEDURE: CT ABD PELV W/ IV CONTRST ONLY CT study of the abdomen and pelvis with contrast Clinical indications: Midabdominal pain and right groin pain. History of hernia. TECHNIQUE: After IV infusion of 75 cc of Omnipaque 300, helical CT scanning of the abdomen and pelvis was performed. PQRS compliance Statement One or more of the following individualized dose reduction techniques were utilized for this study: 1. Automated exposure control 2. Adjustment of the mA and/or kV according to patient size 3. Use of iterative reconstruction technique COMPARISON: April 20, 2017. FINDINGS: The liver and spleen and pancreas are unremarkable. Small gallstones are seen within the gallbladder. No gallbladder wall thickening is seen. No extrahepatic biliary ductal dilatation is seen. Bilateral adrenal hyperplasia is again evident. This is unchanged. No renal mass or hydronephrosis or hydroureter is seen. Urinary bladder wall is smooth. No focal aneurysmal dilatation of the abdominal aorta is seen. No enlarged abdominal or pelvic lymphadenopathy is seen. Right inguinal hernia is seen which contains the appendix. The appendix is mildly distended measuring up to 9 mm in caliber. There is mild wall thickening of the appendix. There is mild inflammatory change here within the hernia sac. Findings are consistent with mild appendicitis. The terminal ileum is unremarkable. No obstructive bowel pattern is evident. No free air or free fluid or mesenteric edema is seen. No lytic process is seen. No lung base consolidation is seen. IMPRESSION: Right inguinal hernia containing the appendix. There is mild distention of the appendix with mild wall thickening and mild periappendiceal inflammatory change consistent with mild appendicitis. No abscess or free fluid or bowel obstruction or free air is seen. Cholelithiasis. Electronically signed by: Betty Serrano MD (11/23/2018 11:53 AM) [facility] DICTATED and SIGNED BY: BETTY SERRANO MD DATE: 11/23/18 1142 Course & Med Decision Making Course & Med Decision Making Pertinent Labs and Imaging studies reviewed. (See chart for details) 1205: On reevaluation patient continues to deny any pain while at rest. Does continue to have mid umbilical pain on palpation. No rebound tenderness/abd distention or rigidity. Discussed test results with pt- CT showing a right inguinal hernia containing the appendix with mild distention of the appendix. WBCs were NL at 5.1 no bands. Discussed plans for admission. Patient has been offered pain medicine reports pain is tolerable if abdomen is not palpated. Patient remains nontoxic in appearance. Will talk with general surgery and discuss patient's case. 1225: Spoke with Dr. Rowan, gen. surgery and discussed pt's case. Will order dose of Zosyn and keep pt NPO. Will admit pt to hospitalist services with consult for Dr. Rowan with admit orders. 1235: Spoke with Dr. Rodgers, hospitalist and discussed pt's case and admit plan to their services. Dragon Disclaimer Dragon Disclaimer This electronic medical record was generated, in whole or in part, using a voice recognition dictation system. Departure Departure Impression: Primary Impression: Abdominal pain Additional Impression: Appendicitis Disposition: 09 ADMITTED INPATIENT Admitting Physician: Delfin Rodgers Condition: STABLE Referrals: NO PCP (PCP) Problem Qualifiers BEVERLY SIMS APRN Nov 23, 2018 10:26
[2018-11-23 10:30] LABS: SQUAMOUS EPITHELIAL CELL,UR OCC /LPF
[2018-11-23 10:31] LABS: BACTERIA,URINE 0 /HPF (0-FEW); WBC,URINE 0 /HPF (0-4)
[2018-11-23] MEDS ORDERED: IOHEXOL 300 MG/ML 100ML VIAL. IV ONE (10:45)
[2018-11-23 10:49] LABS: BASO % 0 % (0-3); EOS # 0.2 x10^3/uL (0.0-0.7); EOS % 4 % (0-3); HEMATOCRIT 39.1 % (39.0-53.0); LYMPH # 1.4 x10^3/uL (1.0-4.8); LYMPH % 27 % (24-48); MEAN CORPUSCULAR HEMOGLOBIN 29 pg (25-35); MEAN CORPUSCULAR HGB CONC 33 g/dL (31-37); MEAN CORPUSCULAR VOLUME 88 fL (79-100); MONO # 0.3 x10^3/uL (0.0-1.1); MONO % 6 % (0-9); NEUT # 3.2 x10^3uL (1.8-7.7); NEUT % 63 % (31-73); PLATELET COUNT 221 x10^3/uL (140-400); RED BLOOD COUNT 4.42 x10^6/uL (4.30-5.70); RED CELL DISTRIBUTION WIDTH 15.3 % (11.5-14.5); WHITE BLOOD COUNT 5.1 x10^3/uL (4.0-11.0)
[2018-11-23 10:53] LABS: CALCIUM 8.4 mg/dL (8.5-10.1); CREATININE 1.1 mg/dL (0.7-1.3); GFR 92.2
[2018-11-23 10:59] LABS: ALBUMIN 3.1 g/dL (3.4-5.0); ALBUMIN/GLOBULIN RATIO 0.8 (1.0-1.7); TOTAL BILIRUBIN 0.2 mg/dL (0.2-1.0); TOTAL PROTEIN 7.2 g/dL (6.4-8.2)
[2018-11-23] MEDS ORDERED: CONTRAST GIVEN. MC PRN (11:00)
--- NOTE | 2018-11-23 11:55 | RAD ---
CT study of the abdomen and pelvis with contrast Clinical indications: Midabdominal pain and right groin pain. History of hernia. TECHNIQUE: After IV infusion of 75 cc of Omnipaque 300, helical CT scanning of the abdomen and pelvis was performed. PQRS compliance Statement One or more of the following individualized dose reduction techniques were utilized for this study: 1. Automated exposure control 2. Adjustment of the mA and/or kV according to patient size 3. Use of iterative reconstruction technique COMPARISON: April 20, 2017. FINDINGS: The liver and spleen and pancreas are unremarkable. Small gallstones are seen within the gallbladder. No gallbladder wall thickening is seen. No extrahepatic biliary ductal dilatation is seen. Bilateral adrenal hyperplasia is again evident. This is unchanged. No renal mass or hydronephrosis or hydroureter is seen. Urinary bladder wall is smooth. No focal aneurysmal dilatation of the abdominal aorta is seen. No enlarged abdominal or pelvic lymphadenopathy is seen. Right inguinal hernia is seen which contains the appendix. The appendix is mildly distended measuring up to 9 mm in caliber. There is mild wall thickening of the appendix. There is mild inflammatory change here within the hernia sac. Findings are consistent with mild appendicitis. The terminal ileum is unremarkable. No obstructive bowel pattern is evident. No free air or free fluid or mesenteric edema is seen. No lytic process is seen. No lung base consolidation is seen. IMPRESSION: Right inguinal hernia containing the appendix. There is mild distention of the appendix with mild wall thickening and mild periappendiceal inflammatory change consistent with mild appendicitis. No abscess or free fluid or bowel obstruction or free air is seen. Cholelithiasis. Electronically signed by: Eliu Serrano MD (11/23/2018 11:53 AM) [facility]
[2018-11-23] MEDS ORDERED: PIPERACILLIN/TAZOBACTAM 3.375 GM in IV NORMAL SALINE 50ML 50 ML IV ONE (12:30)
[2018-11-23] MEDS ORDERED: ONDANSETRON PF 4 MG/2 ML VIAL. IV PRN ×2 (12:30→13:15)
[2018-11-23] MEDS: fentaNYL PF VIAL 100 MCG/2 ML VIAL IV PRN ×2 (12:39→17:45)
--- NOTE | 2018-11-23 12:43 | PDOC2 ---
CONSULT Date of Consult Date of Consult DATE: 11/23/18 TIME: 12:35 History of Present Illness Reason for Visit: The patient is a 33 year old male who reported to the ER with primarily periumbilical pain starting this morning. He has known about an umbilical and right inguinal hernia in the past and was planning repair at some point. He denies nausea or vomiting. He also denies fever or chills. The pain does not seem to radiate and remains persistent in the ER. Past Medical History Past Medical History HTN, YEVGENIY, obesity Past Surgical History Past Surgical History Finger surger Social History Quit (quit 3 weeks ago) Current Medications Current Medications Current Medications Sodium Chloride 1,000 ml @ 1,000 mls/hr 1X ONCE IV Last administered on at 10:35; Start 11/23/18 at 10:15; Stop 11/23/18 at 11:14; Status DC Iohexol (Omnipaque 300 Mg/ml) 75 ml 1X ONCE IV Last administered on 11/23/18at 10:45; Start 11/23/18 at 10:45; Stop 11/23/18 at 10:49; Status DC Info (CONTRAST GIVEN -- Rx MONITORING) 1 each PRN DAILY PRN MC SEE COMMENTS; Start 11/23/18 at 11:00; Stop 11/25/18 at 10:59 Piperacillin Sod/ Tazobactam Sod 3.375 gm/Sodium Chloride 50 ml @ 100 mls/hr 1X ONCE IV ; Start 11/23/18 at 12:30; Stop 11/23/18 at 12:59 Ondansetron HCl (Zofran) 4 mg PRN Q8HRS PRN IV NAUSEA/VOMITING; Start 11/23/18 at 12:30; Stop 11/24/18 at 12:29 Fentanyl Citrate (Fentanyl 2ml Vial) 50 mcg PRN Q2HR PRN IV PAIN; Start at 12:30; Stop 11/24/18 at 12:29 Sodium Chloride 1,000 ml @ 100 mls/hr Q10H IV ; Start 11/23/18 at 12:19; Stop 11/24/18 at 12:18 Active Scripts Active Bactrim Ds Tablet (Sulfamethoxazole/Trimethoprim) 1 Each Tablet 1 Tab PO BID Earwax Treatment Drops (Carbamide Peroxide) 15 Ml Drops 15 Ml OT 5XDAY 4 Days 5-10gtt in ear BID Bactrim Ds Tablet (Sulfamethoxazole/Trimethoprim) 1 Each Tablet 1 Tab PO BID [place] 5-325 Tablet (Acetaminophen/Hydrocodone Bitart) 1 Each Tablet 1-2 Tab PO Q6HRS Ultram (Tramadol Hcl) 50 Mg Tablet 50 Mg PO Q6H PRN Bactrim Ds Tablet (Sulfamethoxazole/Trimethoprim) 1 Each Tablet 1 Tab PO BID 10 Days Allergies Allergies: Coded Allergies: No Known Drug Allergies (Unverified , 09/13/15) ROS General: No: Chills, Night Sweats, Fatigue, Malaise, Appetite, Other PSYCHOLOGICAL ROS: No: Anxiety, Behavioral Disorder, Concentration difficultie , Decreased libido, Depression, Disorientation, Hallucinations, Hostility, Irritablity, Memory difficulties, Mood Swings, Obsessive thoughts, Physical abuse, Sexual abuse, Sleep disturbances, Suicidal ideation, Other Eyes: No Blurry vision, No Decreased vision, No Double vision, No Dry eyes, No Excessive tearing, No Eye Pain, No Itchy Eyes, No Loss of vision, No Photophobia , No Scotomata, No Uses contacts, No Uses glasses, No Other HEENT: No: Heacaches, Visual Changes, Hearing change, Nasal congestion, Nasal discharge, Oral lesions, Sinus pain, Sore Throat, Epistaxis, Sneezing, Snoring, Tinnitus, Vertigo, Vocal changes, Other ALLERGY AND IMMUNOLOGY: No: Hives, Insect Bite Sensitivity, Itchy/Watery Eyes, Nasal Congestion, Post Nasal Drip, Seasonal Allergies, Other Hematological and Lymphatic: No: Bleeding Problems, Blood Clots, Blood Transfusions, Brusing, Night Sweats, Pallor, Swollen Lymph Nodes, Other ENDOCRINE: No: Breast Changes, Galactorrhea, Hair Pattern Changes, Hot Flashes , Malaise/lethargy, Mood Swings, Palpitations, Polydipsia/polyuria, Skin Changes , Temperature Intolerance, Unexpected Weight Changes, Other Respiratory: No: Cough, Hemoptysis, Orthopnea, Pleuritic Pain, Shortness of breath, SOB with excertion, Sputum Changes, Stridor, Tachypnea, Wheezing, Other Cardiovascular: No Chest Pain, No Palpitations, No Orthopnea, No Paroxysmal Noc. Dyspnea, No Edema, No Lt Headedness, No Other Gastrointestinal: Yes Abdominal Pain Genitourinary: No Dysuria, No Frequency, No Incontinence, No Hematuria, No Retention, No Discharge, No Urgency, No Pain, No Flank Pain, No Other, No , No , No , No , No , No , No Musculoskeletal: No Gait Disturbance, No Joint Pain, No Joint Stiffness, No Joint Swelling, No Muscle Pain, No Muscular Weakness, No Pain In:, No Swelling In:, No Other Neurological: No Behavorial Changes, No Bowel/Bladder ControlChng, No Confusion , No Dizziness, No Gait Disturbance, No Headaches, No Impaired Coord/balance, No Memory Loss, No Numbness/Tingling, No Seizures, No Speech Problems, No Tremors, No Visual Changes, No Weakness, No Other Skin: Yes Other (lower abdomen with "boil", planning to see RADHA MCKENZIE) Physical Exam General: Alert, Oriented X3, Cooperative HEENT: Atraumatic Lungs: Clear to auscultation Heart: Regular rate Abdomen: Soft (obese, tender with palpation in mid abdomen, reducible umbilical and right inguinal hernia, inguinal hernia nontender) Extremities: No clubbing, No cyanosis Skin: Other (focal area of suspected hidradenitis lower mid abdomen) Neuro: Normal speech, Strength at 5/5 X4 ext Psych/Mental Status: Mental status NL Vitals VITALS Vital Signs Date Time Temp Pulse Resp B/P (MAP) Pulse Ox O2 Delivery O2 Flow Rate FiO2 11/23/18 10:11 98.2 61 18 146/82 (103) 99 Room Air 98.2 Labs Labs Laboratory Tests Test 11/23/18 10:06 11/23/18 10:30 Urine Collection Type Unknown Urine Color Yellow Urine Clarity Clear Urine pH 5.0 Urine Specific [place] 1.015 Urine Protein Negative mg/dL (NEG-TRACE) Urine Glucose (UA) Negative mg/dL (NEG) Urine Ketones (Stick) Negative mg/dL (NEG) Urine Blood Small (NEG) Urine Nitrite Negative (NEG) Urine Bilirubin Negative (NEG) Urine Urobilinogen Dipstick 0.2 mg/dL (0.2 mg/dL) Urine Leukocyte Esterase Negative (NEG) Urine RBC 1-2 /HPF (0-2) Urine WBC 0 /HPF (0-4) Urine Squamous Epithelial Cells Occ /LPF Urine Bacteria 0 /HPF (0-FEW) White Blood Count 5.1 x10^3/uL (4.0-11.0) Red Blood Count 4.42 x10^6/uL (4.30-5.70) Hemoglobin 13.0 g/dL (13.0-17.5) Hematocrit 39.1 % (39.0-53.0) Mean Corpuscular Volume 88 fL (79-100) Mean Corpuscular Hemoglobin 29 pg (25-35) Mean Corpuscular Hemoglobin Concent 33 g/dL (31-37) Red Cell Distribution Width 15.3 % (11.5-14.5) Platelet Count 221 x10^3/uL (140-400) Neutrophils (%) (Auto) 63 % (31-73) Lymphocytes (%) (Auto) 27 % (24-48) Monocytes (%) (Auto) 6 % (0-9) Eosinophils (%) (Auto) 4 % (0-3) Basophils (%) (Auto) 0 % (0-3) Neutrophils # (Auto) 3.2 x10^3uL (1.8-7.7) Lymphocytes # (Auto) 1.4 x10^3/uL (1.0-4.8) Monocytes # (Auto) 0.3 x10^3/uL (0.0-1.1) Eosinophils # (Auto) 0.2 x10^3/uL (0.0-0.7) Basophils # (Auto) 0.0 x10^3/uL (0.0-0.2) Sodium Level 140 mmol/L (136-145) Potassium Level 4.0 mmol/L (3.5-5.1) Chloride Level 104 mmol/L (98-107) Carbon Dioxide Level 30 mmol/L (21-32) Anion Gap 6 (6-14) Blood Urea Nitrogen 12 mg/dL (8-26) Creatinine 1.1 mg/dL (0.7-1.3) Estimated GFR (Cockcroft-Gault) 92.2 BUN/Creatinine Ratio 11 (6-20) Glucose Level 132 mg/dL (70-99) Calcium Level 8.4 mg/dL (8.5-10.1) Total Bilirubin 0.2 mg/dL (0.2-1.0) Aspartate Amino Transf (AST/SGOT) 22 U/L (15-37) Alanine Aminotransferase (ALT/SGPT) 23 U/L (16-63) Alkaline Phosphatase 71 U/L (46-116) Total Protein 7.2 g/dL (6.4-8.2) Albumin 3.1 g/dL (3.4-5.0) Albumin/Globulin Ratio 0.8 (1.0-1.7) Laboratory Tests Test 11/23/18 10:06 11/23/18 10:30 Urine Collection Type Unknown Urine Color Yellow Urine Clarity Clear Urine pH 5.0 Urine Specific [place] 1.015 Urine Protein Negative mg/dL (NEG-TRACE) Urine Glucose (UA) Negative mg/dL (NEG) Urine Ketones (Stick) Negative mg/dL (NEG) Urine Blood Small (NEG) Urine Nitrite Negative (NEG) Urine Bilirubin Negative (NEG) Urine Urobilinogen Dipstick 0.2 mg/dL (0.2 mg/dL) Urine Leukocyte Esterase Negative (NEG) Urine RBC 1-2 /HPF (0-2) Urine WBC 0 /HPF (0-4) Urine Squamous Epithelial Cells Occ /LPF Urine Bacteria 0 /HPF (0-FEW) White Blood Count 5.1 x10^3/uL (4.0-11.0) Red Blood Count 4.42 x10^6/uL (4.30-5.70) Hemoglobin 13.0 g/dL (13.0-17.5) Hematocrit 39.1 % (39.0-53.0) Mean Corpuscular Volume 88 fL (79-100) Mean Corpuscular Hemoglobin 29 pg (25-35) Mean Corpuscular Hemoglobin Concent 33 g/dL (31-37) Red Cell Distribution Width 15.3 % (11.5-14.5) Platelet Count 221 x10^3/uL (140-400) Neutrophils (%) (Auto) 63 % (31-73) Lymphocytes (%) (Auto) 27 % (24-48) Monocytes (%) (Auto) 6 % (0-9) Eosinophils (%) (Auto) 4 % (0-3) Basophils (%) (Auto) 0 % (0-3) Neutrophils # (Auto) 3.2 x10^3uL (1.8-7.7) Lymphocytes # (Auto) 1.4 x10^3/uL (1.0-4.8) Monocytes # (Auto) 0.3 x10^3/uL (0.0-1.1) Eosinophils # (Auto) 0.2 x10^3/uL (0.0-0.7) Basophils # (Auto) 0.0 x10^3/uL (0.0-0.2) Sodium Level 140 mmol/L (136-145) Potassium Level 4.0 mmol/L (3.5-5.1) Chloride Level 104 mmol/L (98-107) Carbon Dioxide Level 30 mmol/L (21-32) Anion Gap 6 (6-14) Blood Urea Nitrogen 12 mg/dL (8-26) Creatinine 1.1 mg/dL (0.7-1.3) Estimated GFR (Cockcroft-Gault) 92.2 BUN/Creatinine Ratio 11 (6-20) Glucose Level 132 mg/dL (70-99) Calcium Level 8.4 mg/dL (8.5-10.1) Total Bilirubin 0.2 mg/dL (0.2-1.0) Aspartate Amino Transf (AST/SGOT) 22 U/L (15-37) Alanine Aminotransferase (ALT/SGPT) 23 U/L (16-63) Alkaline Phosphatase 71 U/L (46-116) Total Protein 7.2 g/dL (6.4-8.2) Albumin 3.1 g/dL (3.4-5.0) Albumin/Globulin Ratio 0.8 (1.0-1.7) Images Images CT abdomen: \\IMPRESSION: Right inguinal hernia containing the appendix. There is mild distention of the appendix with mild wall thickening and mild periappendiceal inflammatory change consistent with mild appendicitis. No abscess or free fluid or bowel obstruction or free air is seen. Cholelithiasis. Assessment/Plan Assessment/Plan Mid abdominal pain, normal WBC, CT reviewed, raises concern for early appendicitis. I reviewed the tests with the patient and reviewed treatment options including laparoscopy. Testing is suggestive but not conclusive for appendicitis. Only way to be certain with be with laparoscopy and likely appendectomy. Typically would not recommend hernia repair at the same time since mesh would be required; prefer to stage with laparoscopy/appy now and hernia repairs with mesh in the future. I reviewed options with the patient including the risks of surgery. He prefers to proceed with appendectomy, and he is aware of the potential for a negative appy. DAVIS MANNING MD Nov 23, 2018 12:43
[2018-11-23] MEDS: IV NORMAL SALINE 1000ML BAG 1,000 ML IV SCH ×2 (12:48→22:19)
--- NOTE | 2018-11-23 12:58 | PDOC1 ---
History and Physical Date of Admission Date of Admission DATE: 11/23/18 TIME: 12:58 Identification/Chief Complaint Chief Complaint seen in er Patient states around 6 AM this morning at work pain . 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 Patient denies any nausea or vomiting, fever, or urinary symptoms History of Present Illness History of Present Illness Operative Note Operative Note Preoperative Diagnosis: Acute Appendicitis Postoperative Diagnosis: Abdominal pain, ?acute appendicitis Procedure: Laparoscopic appendectomy Surgeon: Harpal Pull Through Hooker: Latasha BEJARANO Anesthesia: Gen. EBL: 10 mL Specimen: Appendix to pathology Past Medical History Past Medical History Past Medical History Past Medical History: Hypertension Additional Past Medical Histor: SLEEP APNEA Past Surgical History: Other Additional Past Surgical Histo: left index finger Alcohol Use: Rarely Drug Use: None FAMILY HX HTN, OBESITY Family History Family History: High Cholestrol, Hypertension Social History Smoke: No (quit 3 weeks ago) ALCOHOL: none Drugs: None Current Medications Current Medications Current Medications Sodium Chloride 1,000 ml @ 1,000 mls/hr 1X ONCE IV Last administered on at 10:35; Start 11/23/18 at 10:15; Stop 11/23/18 at 11:14; Status DC Iohexol (Omnipaque 300 Mg/ml) 75 ml 1X ONCE IV Last administered on 11/23/18at 10:45; Start 11/23/18 at 10:45; Stop 11/23/18 at 10:49; Status DC Info (CONTRAST GIVEN -- Rx MONITORING) 1 each PRN DAILY PRN MC SEE COMMENTS; Start 11/23/18 at 11:00; Stop 11/25/18 at 10:59 Piperacillin Sod/ Tazobactam Sod 3.375 gm/Sodium Chloride 50 ml @ 100 mls/hr 1X ONCE IV ; Start 11/23/18 at 12:30; Stop 11/23/18 at 12:59 Ondansetron HCl (Zofran) 4 mg PRN Q8HRS PRN IV NAUSEA/VOMITING Last administered on 11/23/18at 12:39; Start 11/23/18 at 12:30; Stop 11/24/18 at 12:29 Fentanyl Citrate (Fentanyl 2ml Vial) 50 mcg PRN Q2HR PRN IV PAIN Last administered on 11/23/18at 12:39; Start 11/23/18 at 12:30; Stop 11/24/18 at 12:29 Sodium Chloride 1,000 ml @ 100 mls/hr Q10H IV Last administered on 11/23/18at 12:48; Start 11/23/18 at 12:19; Stop 11/24/18 at 12:18 Active Scripts Active Bactrim Ds Tablet (Sulfamethoxazole/Trimethoprim) 1 Each Tablet 1 Tab PO BID Earwax Treatment Drops (Carbamide Peroxide) 15 Ml Drops 15 Ml OT 5XDAY 4 Days 5-10gtt in ear BID Bactrim Ds Tablet (Sulfamethoxazole/Trimethoprim) 1 Each Tablet 1 Tab PO BID [place] 5-325 Tablet (Acetaminophen/Hydrocodone Bitart) 1 Each Tablet 1-2 Tab PO Q6HRS Ultram (Tramadol Hcl) 50 Mg Tablet 50 Mg PO Q6H PRN Bactrim Ds Tablet (Sulfamethoxazole/Trimethoprim) 1 Each Tablet 1 Tab PO BID 10 Days Allergies Allergies: Coded Allergies: No Known Drug Allergies (Unverified , 09/13/15) ROS Review of System Review of Systems Review of Systems Constitutional: Denies fever or chills [] Respiratory: Denies cough or shortness of breath [] Cardiovascular: No additional information not addressed in HPI [] GI: Denies nausea, vomiting, bloody stools or diarrhea. Reports mid abd and rt groin pain : Denies dysuria or hematuria [] Musculoskeletal: Denies back pain or joint pain [] Integument: Denies rash or skin lesions [] Neurologic: Denies headache, focal weakness or sensory changes [] 14 pt systems were reviewed and found to be within normal limits, except as documented Eyes: No Blurry vision, No Decreased vision, No Double vision, No Dry eyes, No Excessive tearing, No Eye Pain, No Itchy Eyes, No Loss of vision, No Photophobia , No Scotomata, No Uses contacts, No Uses glasses, No Other HEENT: No: Heacaches, Visual Changes, Hearing change, Nasal congestion, Nasal discharge, Oral lesions, Sinus pain, Sore Throat, Epistaxis, Sneezing, Snoring, Tinnitus, Vertigo, Vocal changes, Other Hematological and Lymphatic: No: Bleeding Problems, Blood Clots, Blood Transfusions, Brusing, Night Sweats, Pallor, Swollen Lymph Nodes, Other ENDOCRINE: No: Breast Changes, Galactorrhea, Hair Pattern Changes, Hot Flashes , Malaise/lethargy, Mood Swings, Palpitations, Polydipsia/polyuria, Skin Changes , Temperature Intolerance, Unexpected Weight Changes, Other Respiratory: No: Cough, Hemoptysis, Orthopnea, Pleuritic Pain, Shortness of breath, SOB with excertion, Sputum Changes, Stridor, Tachypnea, Wheezing, Other Cardiovascular: No Chest Pain, No Palpitations, No Orthopnea, No Paroxysmal Noc. Dyspnea, No Edema, No Lt Headedness, No Other Gastrointestinal: Yes Abdominal Pain; No Nausea, No Vomiting, No Diarrhea, No Constipation, No Melena, No Hematochezia, No Other Genitourinary: No Dysuria, No Frequency, No Incontinence, No Hematuria, No Retention, No Discharge, No Urgency, No Pain, No Flank Pain, No Other, No , No , No , No , No , No , No Musculoskeletal: No Gait Disturbance, No Joint Pain, No Joint Stiffness, No Joint Swelling, No Muscle Pain, No Muscular Weakness, No Pain In:, No Swelling In:, No Other Neurological: No Behavorial Changes, No Bowel/Bladder ControlChng, No Confusion , No Dizziness, No Gait Disturbance, No Headaches, No Impaired Coord/balance, No Memory Loss, No Numbness/Tingling, No Seizures, No Speech Problems, No Tremors, No Visual Changes, No Weakness, No Other Physical Exam Physical Exam Physical Exam Physical Exam Constitutional: Well developed, well nourished, mod acute distress, non-toxic appearance. [] HENT: Normocephalic, atraumatic, oropharynx moist, nose normal. [] Eyes: Pupils equal, conjunctiva normal, no discharge. [] Neck: Normal range of motion, no tenderness, supple, no stridor. [] Cardiovascular: Heart rate regular rhythm, no murmur [] Lungs & Thorax: Bilateral breath sounds clear to auscultation [] Abdomen: Bowel sounds normal, soft- no distention/rigidity- tender on palp. mid umbilical without obvious hernia palpated, no rebound tenderness. No masses, no pulsatile masses. Skin: Warm, dry, no erythema, no rash. [] Back: No tenderness, no CVA tenderness. [] Extremities: No tenderness, no cyanosis, no clubbing, ROM intact, no edema. [] Neurologic: Alert and oriented X 3, normal motor function, normal sensory function, no focal deficits noted. [] Psychologic: Affect normal, judgement normal, mood normal. [] General: Alert, Oriented X3, Cooperative, mild distress HEENT: Atraumatic, PERRLA Lungs: Clear to auscultation Heart: S1S2, RRR, no thrills Breasts: Not examined Abdomen: No masses Rectal Exam: not examined Extremities: No clubbing, No cyanosis Skin: No breakdown Neuro: Cranial nerves 3-12 NL Psych/Mental Status: Mood NL Vitals Vitals Vital Signs Date Time Temp Pulse Resp B/P (MAP) Pulse Ox O2 Delivery O2 Flow Rate FiO2 11/23/18 12:39 18 100 Room Air 11/23/18 10:11 98.2 61 146/82 (103) 98.2 Labs Labs Laboratory Tests Test 11/23/18 10:06 11/23/18 10:30 Urine Collection Type Unknown Urine Color Yellow Urine Clarity Clear Urine pH 5.0 Urine Specific [place] 1.015 Urine Protein Negative mg/dL (NEG-TRACE) Urine Glucose (UA) Negative mg/dL (NEG) Urine Ketones (Stick) Negative mg/dL (NEG) Urine Blood Small (NEG) Urine Nitrite Negative (NEG) Urine Bilirubin Negative (NEG) Urine Urobilinogen Dipstick 0.2 mg/dL (0.2 mg/dL) Urine Leukocyte Esterase Negative (NEG) Urine RBC 1-2 /HPF (0-2) Urine WBC 0 /HPF (0-4) Urine Squamous Epithelial Cells Occ /LPF Urine Bacteria 0 /HPF (0-FEW) White Blood Count 5.1 x10^3/uL (4.0-11.0) Red Blood Count 4.42 x10^6/uL (4.30-5.70) Hemoglobin 13.0 g/dL (13.0-17.5) Hematocrit 39.1 % (39.0-53.0) Mean Corpuscular Volume 88 fL (79-100) Mean Corpuscular Hemoglobin 29 pg (25-35) Mean Corpuscular Hemoglobin Concent 33 g/dL (31-37) Red Cell Distribution Width 15.3 % (11.5-14.5) Platelet Count 221 x10^3/uL (140-400) Neutrophils (%) (Auto) 63 % (31-73) Lymphocytes (%) (Auto) 27 % (24-48) Monocytes (%) (Auto) 6 % (0-9) Eosinophils (%) (Auto) 4 % (0-3) Basophils (%) (Auto) 0 % (0-3) Neutrophils # (Auto) 3.2 x10^3uL (1.8-7.7) Lymphocytes # (Auto) 1.4 x10^3/uL (1.0-4.8) Monocytes # (Auto) 0.3 x10^3/uL (0.0-1.1) Eosinophils # (Auto) 0.2 x10^3/uL (0.0-0.7) Basophils # (Auto) 0.0 x10^3/uL (0.0-0.2) Sodium Level 140 mmol/L (136-145) Potassium Level 4.0 mmol/L (3.5-5.1) Chloride Level 104 mmol/L (98-107) Carbon Dioxide Level 30 mmol/L (21-32) Anion Gap 6 (6-14) Blood Urea Nitrogen 12 mg/dL (8-26) Creatinine 1.1 mg/dL (0.7-1.3) Estimated GFR (Cockcroft-Gault) 92.2 BUN/Creatinine Ratio 11 (6-20) Glucose Level 132 mg/dL (70-99) Calcium Level 8.4 mg/dL (8.5-10.1) Total Bilirubin 0.2 mg/dL (0.2-1.0) Aspartate Amino Transf (AST/SGOT) 22 U/L (15-37) Alanine Aminotransferase (ALT/SGPT) 23 U/L (16-63) Alkaline Phosphatase 71 U/L (46-116) Total Protein 7.2 g/dL (6.4-8.2) Albumin 3.1 g/dL (3.4-5.0) Albumin/Globulin Ratio 0.8 (1.0-1.7) Laboratory Tests Test 11/23/18 10:06 11/23/18 10:30 Urine Collection Type Unknown Urine Color Yellow Urine Clarity Clear Urine pH 5.0 Urine Specific [place] 1.015 Urine Protein Negative mg/dL (NEG-TRACE) Urine Glucose (UA) Negative mg/dL (NEG) Urine Ketones (Stick) Negative mg/dL (NEG) Urine Blood Small (NEG) Urine Nitrite Negative (NEG) Urine Bilirubin Negative (NEG) Urine Urobilinogen Dipstick 0.2 mg/dL (0.2 mg/dL) Urine Leukocyte Esterase Negative (NEG) Urine RBC 1-2 /HPF (0-2) Urine WBC 0 /HPF (0-4) Urine Squamous Epithelial Cells Occ /LPF Urine Bacteria 0 /HPF (0-FEW) White Blood Count 5.1 x10^3/uL (4.0-11.0) Red Blood Count 4.42 x10^6/uL (4.30-5.70) Hemoglobin 13.0 g/dL (13.0-17.5) Hematocrit 39.1 % (39.0-53.0) Mean Corpuscular Volume 88 fL (79-100) Mean Corpuscular Hemoglobin 29 pg (25-35) Mean Corpuscular Hemoglobin Concent 33 g/dL (31-37) Red Cell Distribution Width 15.3 % (11.5-14.5) Platelet Count 221 x10^3/uL (140-400) Neutrophils (%) (Auto) 63 % (31-73) Lymphocytes (%) (Auto) 27 % (24-48) Monocytes (%) (Auto) 6 % (0-9) Eosinophils (%) (Auto) 4 % (0-3) Basophils (%) (Auto) 0 % (0-3) Neutrophils # (Auto) 3.2 x10^3uL (1.8-7.7) Lymphocytes # (Auto) 1.4 x10^3/uL (1.0-4.8) Monocytes # (Auto) 0.3 x10^3/uL (0.0-1.1) Eosinophils # (Auto) 0.2 x10^3/uL (0.0-0.7) Basophils # (Auto) 0.0 x10^3/uL (0.0-0.2) Sodium Level 140 mmol/L (136-145) Potassium Level 4.0 mmol/L (3.5-5.1) Chloride Level 104 mmol/L (98-107) Carbon Dioxide Level 30 mmol/L (21-32) Anion Gap 6 (6-14) Blood Urea Nitrogen 12 mg/dL (8-26) Creatinine 1.1 mg/dL (0.7-1.3) Estimated GFR (Cockcroft-Gault) 92.2 BUN/Creatinine Ratio 11 (6-20) Glucose Level 132 mg/dL (70-99) Calcium Level 8.4 mg/dL (8.5-10.1) Total Bilirubin 0.2 mg/dL (0.2-1.0) Aspartate Amino Transf (AST/SGOT) 22 U/L (15-37) Alanine Aminotransferase (ALT/SGPT) 23 U/L (16-63) Alkaline Phosphatase 71 U/L (46-116) Total Protein 7.2 g/dL (6.4-8.2) Albumin 3.1 g/dL (3.4-5.0) Albumin/Globulin Ratio 0.8 (1.0-1.7) VTE Prophylaxis Ordered VTE Prophylaxis Devices: Yes VTE Pharmacological Prophylaxi: Yes Assessment/Plan Assessment/Plan IMPRESSION: Right inguinal hernia containing the appendix. mild distention of the appendix with mild wall thickening and mild periappendiceal inflammatory change consistent with mild appendicitis. No abscess or free fluid or bowel obstruction or free air is seen. Cholelithiasis. plan npo iv fluids, iv pain control gen surgery consult, OR TODAY TEDDY TAYLOR MD Nov 23, 2018 12:58
[2018-11-23] MEDS ORDERED: IV RINGERS,LACTATED 1000ML 1,000 ML IV SCH (13:11)
[2018-11-23] MEDS ORDERED: HYDROmorphone 2 MG/ML VIAL IV PRN (13:15)
[2018-11-23] MEDS ORDERED: fentaNYL PF VIAL 100 MCG/2 ML VIAL IV PRN ×2 (13:15)
[2018-11-23] MEDS ORDERED: LIDOCAINE 1% PF 2 ML VIAL. ID PRN (13:15)
[2018-11-23] MEDS ORDERED: MORPHINE SULFATE 4 MG/ML VIAL. IV PRN (13:15)
[2018-11-23] MEDS ORDERED: PROCHLORPERAZINE 10 MG/2 ML VIAL. IV PRN (13:15)
[2018-11-23] MEDS ORDERED: DEXAMETHASONE SOD PHOS 20 MG/5 ML VIAL. ONE (13:16)
[2018-11-23] MEDS ORDERED: LIDOCAINE 2% PF 5 ML VIAL. ONE (13:16)
[2018-11-23] MEDS ORDERED: PROPOFOL 20 ML IV ONE (13:16)
[2018-11-23] MEDS ORDERED: ROCURONIUM 50 MG/5 ML VIAL. ONE (13:16)
[2018-11-23] MEDS ORDERED: ONDANSETRON PF 4 MG/2 ML VIAL. ONE (13:16)
[2018-11-23] MEDS ORDERED: BUPIVAC MPF-EPI 0.5%-1:200000 30 ML VIAL. ONE (13:18)
[2018-11-23] MEDS ORDERED: fentaNYL PF VIAL 250 MCG/5 ML VIAL ONE (13:19)
[2018-11-23] MEDS ORDERED: MIDAZOLAM HCL/PF 2 MG/2 ML VIAL. ONE (13:19)
[2018-11-23] MEDS ORDERED: NEOSTIGMINE 10 MG/10 ML VIAL. ONE (14:38)
[2018-11-23] MEDS ORDERED: GLYCOPYRROLATE 1 MG/5 ML VIAL. ONE (14:39)
[2018-11-23] MEDS ORDERED: KETOROLAC 30 MG/ML INJ FOR OR. INJ ONE (15:00)
--- NOTE | 2018-11-23 15:14 | PDOC4 ---
Operative Note Operative Note Preoperative Diagnosis: Acute Appendicitis Postoperative Diagnosis: Abdominal pain, ?acute appendicitis Procedure: Laparoscopic appendectomy Surgeon: Harpal Respiratory Care Faculty: Latasha BEJARANO Anesthesia: Gen. EBL: 10 mL Specimen: Appendix to pathology Drains: None Complications: None Indication: The patient is a 33 year old male who reported to the emergency department with abdominal pain. The evaluation included a CT scan which raised concern for possible appendicitis with the appendix located in a right inguinal hernia. I discussed options of surgery vs observation with the patient and I reviewed the advantages and disadvantages of both approaches. He would like to proceed with laparoscopy and probably appendectomy, and he understands the potential for a negative appendectomy. The risks of surgery were discussed which include bleeding, infection, visceral injury, pain, anesthetic risk, potential need for additional surgery or procedure. The patient understands and would like to proceed. Description: The patient was taken to the operating room and placed supine on the operating table. Gen. anesthesia was performed. The abdomen was prepped with ChloraPrep and draped in a standard surgical manner. A left abdominal incision was made through which a visualized 5 mm trocar was inserted. A pneumoperitoneum was created and the laparoscope was introduced. In the left lower quadrant a 5 mm trocar was inserted. In the lower abdomen a 12 mm trocar was inserted. The appendix was identified within the right inguinal hernia with some attachments to the hernia sac. The appendix was possibly mildly thickened, but showed no overt signs of inflammation. Inspection of the abdomen showed no other abnormalities apart from the known reducible right inguinal hernia, and the umbilical hernia. The mesoappendix was bluntly from the appendix. The mesoappendix was controlled using several clips and it was divided. The appendix was then amputated off the cecum using an Endo YOLANDA 45 stapling device. The appendix was then placed in an endoscopic bag and extracted at the lower abdominal incision site. The fascia there was closed with 0 Vicryl. The RLQ was visualized and the staple line appeared well intact and hemostasis was good. No other abnormalities were identified grossly. The remaining ports were removed and the pneumoperitoneum was relieved. The skin at all incision sites was closed with 4-0 Monocryl. Steri-Strips and dressings were applied. The patient tolerated the procedure well and was sent to the recovery room in stable condition. At the end of the case all counts were correct. DAVIS MANNING MDb 26, 2019 15:14
[2018-11-23] MEDS ORDERED: SEVOFLURANE 61 TO 120 MINUTES. IH ONE (15:27)
[2018-11-23] MEDS ORDERED: oxyCODONE/APAP 10/325 1 TAB TABLET PO PRN (15:30)
[2018-11-23] MEDS ORDERED: fentaNYL PF VIAL 100 MCG/2 ML VIAL ONE (15:53)
[2018-11-23] MEDS ORDERED: PROCHLORPERAZINE 10 MG/2 ML VIAL. ONE (15:53)
[2018-11-23] MEDS: oxyCODONE/APAP 10/325 1 TAB TABLET PO PRN ×2 (19:02→23:01)
[2018-11-24] MEDS: oxyCODONE/APAP 10/325 1 TAB TABLET PO PRN ×3 (03:09→14:00)
[2018-11-24 03:31] VITALS: BP 127/67
[2018-11-24 07:00] VITALS: BP 134/80
--- NOTE | 2018-11-24 07:39 | PDOC ---
PROGRESS NOTES Subjective Subjective ok, a little sore Objective Objective Vital Signs Date Time Temp Pulse Resp B/P (MAP) Pulse Ox O2 Delivery O2 Flow Rate FiO2 11/24/18 07:21 16 Room Air 11/24/18 04:09 94 11/24/18 03:31 98.2 86 127/67 (87) 98.2 11/24/18 03:09 10.0 Intake and Output 11/24/18 07:00 Intake Total 3150 ml Output Total 420 ml Balance 2730 ml Intake Oral 800 ml IV Total 2350 ml Output Urine Total 410 ml Estimated Blood Loss 10 ml # Voids 1 Physical Exam Abdomen: Soft Assessment Assessment Problems Medical Problems: (1) Abdominal pain Status: Acute (2) Appendicitis Status: Acute Plan Plan of Care OK to discharge today, pain script in chart, FU with me in 2 weeks in office Comment Review of Relevant I have reviewed the following items gunner (where applicable) has been applied. Labs Laboratory Tests Test 11/23/18 10:06 11/23/18 10:30 Urine Collection Type Unknown Urine Color Yellow Urine Clarity Clear Urine pH 5.0 Urine Specific [place] 1.015 Urine Protein Negative mg/dL (NEG-TRACE) Urine Glucose (UA) Negative mg/dL (NEG) Urine Ketones (Stick) Negative mg/dL (NEG) Urine Blood Small (NEG) Urine Nitrite Negative (NEG) Urine Bilirubin Negative (NEG) Urine Urobilinogen Dipstick 0.2 mg/dL (0.2 mg/dL) Urine Leukocyte Esterase Negative (NEG) Urine RBC 1-2 /HPF (0-2) Urine WBC 0 /HPF (0-4) Urine Squamous Epithelial Cells Occ /LPF Urine Bacteria 0 /HPF (0-FEW) White Blood Count 5.1 x10^3/uL (4.0-11.0) Red Blood Count 4.42 x10^6/uL (4.30-5.70) Hemoglobin 13.0 g/dL (13.0-17.5) Hematocrit 39.1 % (39.0-53.0) Mean Corpuscular Volume 88 fL (79-100) Mean Corpuscular Hemoglobin 29 pg (25-35) Mean Corpuscular Hemoglobin Concent 33 g/dL (31-37) Red Cell Distribution Width 15.3 % (11.5-14.5) Platelet Count 221 x10^3/uL (140-400) Neutrophils (%) (Auto) 63 % (31-73) Lymphocytes (%) (Auto) 27 % (24-48) Monocytes (%) (Auto) 6 % (0-9) Eosinophils (%) (Auto) 4 % (0-3) Basophils (%) (Auto) 0 % (0-3) Neutrophils # (Auto) 3.2 x10^3uL (1.8-7.7) Lymphocytes # (Auto) 1.4 x10^3/uL (1.0-4.8) Monocytes # (Auto) 0.3 x10^3/uL (0.0-1.1) Eosinophils # (Auto) 0.2 x10^3/uL (0.0-0.7) Basophils # (Auto) 0.0 x10^3/uL (0.0-0.2) Sodium Level 140 mmol/L (136-145) Potassium Level 4.0 mmol/L (3.5-5.1) Chloride Level 104 mmol/L (98-107) Carbon Dioxide Level 30 mmol/L (21-32) Anion Gap 6 (6-14) Blood Urea Nitrogen 12 mg/dL (8-26) Creatinine 1.1 mg/dL (0.7-1.3) Estimated GFR (Cockcroft-Gault) 92.2 BUN/Creatinine Ratio 11 (6-20) Glucose Level 132 mg/dL (70-99) Calcium Level 8.4 mg/dL (8.5-10.1) Total Bilirubin 0.2 mg/dL (0.2-1.0) Aspartate Amino Transf (AST/SGOT) 22 U/L (15-37) Alanine Aminotransferase (ALT/SGPT) 23 U/L (16-63) Alkaline Phosphatase 71 U/L (46-116) Total Protein 7.2 g/dL (6.4-8.2) Albumin 3.1 g/dL (3.4-5.0) Albumin/Globulin Ratio 0.8 (1.0-1.7) Laboratory Tests Test 11/23/18 10:06 11/23/18 10:30 Urine Collection Type Unknown Urine Color Yellow Urine Clarity Clear Urine pH 5.0 Urine Specific [place] 1.015 Urine Protein Negative mg/dL (NEG-TRACE) Urine Glucose (UA) Negative mg/dL (NEG) Urine Ketones (Stick) Negative mg/dL (NEG) Urine Blood Small (NEG) Urine Nitrite Negative (NEG) Urine Bilirubin Negative (NEG) Urine Urobilinogen Dipstick 0.2 mg/dL (0.2 mg/dL) Urine Leukocyte Esterase Negative (NEG) Urine RBC 1-2 /HPF (0-2) Urine WBC 0 /HPF (0-4) Urine Squamous Epithelial Cells Occ /LPF Urine Bacteria 0 /HPF (0-FEW) White Blood Count 5.1 x10^3/uL (4.0-11.0) Red Blood Count 4.42 x10^6/uL (4.30-5.70) Hemoglobin 13.0 g/dL (13.0-17.5) Hematocrit 39.1 % (39.0-53.0) Mean Corpuscular Volume 88 fL (79-100) Mean Corpuscular Hemoglobin 29 pg (25-35) Mean Corpuscular Hemoglobin Concent 33 g/dL (31-37) Red Cell Distribution Width 15.3 % (11.5-14.5) Platelet Count 221 x10^3/uL (140-400) Neutrophils (%) (Auto) 63 % (31-73) Lymphocytes (%) (Auto) 27 % (24-48) Monocytes (%) (Auto) 6 % (0-9) Eosinophils (%) (Auto) 4 % (0-3) Basophils (%) (Auto) 0 % (0-3) Neutrophils # (Auto) 3.2 x10^3uL (1.8-7.7) Lymphocytes # (Auto) 1.4 x10^3/uL (1.0-4.8) Monocytes # (Auto) 0.3 x10^3/uL (0.0-1.1) Eosinophils # (Auto) 0.2 x10^3/uL (0.0-0.7) Basophils # (Auto) 0.0 x10^3/uL (0.0-0.2) Sodium Level 140 mmol/L (136-145) Potassium Level 4.0 mmol/L (3.5-5.1) Chloride Level 104 mmol/L (98-107) Carbon Dioxide Level 30 mmol/L (21-32) Anion Gap 6 (6-14) Blood Urea Nitrogen 12 mg/dL (8-26) Creatinine 1.1 mg/dL (0.7-1.3) Estimated GFR (Cockcroft-Gault) 92.2 BUN/Creatinine Ratio 11 (6-20) Glucose Level 132 mg/dL (70-99) Calcium Level 8.4 mg/dL (8.5-10.1) Total Bilirubin 0.2 mg/dL (0.2-1.0) Aspartate Amino Transf (AST/SGOT) 22 U/L (15-37) Alanine Aminotransferase (ALT/SGPT) 23 U/L (16-63) Alkaline Phosphatase 71 U/L (46-116) Total Protein 7.2 g/dL (6.4-8.2) Albumin 3.1 g/dL (3.4-5.0) Albumin/Globulin Ratio 0.8 (1.0-1.7) Medications Current Medications Sodium Chloride 1,000 ml @ 1,000 mls/hr 1X ONCE IV Last administered on at 10:35; Start 11/23/18 at 10:15; Stop 11/23/18 at 11:14; Status DC Iohexol (Omnipaque 300 Mg/ml) 75 ml 1X ONCE IV Last administered on 11/23/18at 10:45; Start 11/23/18 at 10:45; Stop 11/23/18 at 10:49; Status DC Info (CONTRAST GIVEN -- Rx MONITORING) 1 each PRN DAILY PRN MC SEE COMMENTS; Start 11/23/18 at 11:00; Stop 11/25/18 at 10:59 Piperacillin Sod/ Tazobactam Sod 3.375 gm/Sodium Chloride 50 ml @ 100 mls/hr 1X ONCE IV ; Start 11/23/18 at 12:30; Stop 11/23/18 at 12:59; Status DC Ondansetron HCl (Zofran) 4 mg PRN Q8HRS PRN IV NAUSEA/VOMITING Last administered on 11/23/18at 12:39; Start 11/23/18 at 12:30; Stop 11/24/18 at 12:29 Fentanyl Citrate (Fentanyl 2ml Vial) 50 mcg PRN Q2HR PRN IV PAIN Last administered on 11/23/18at 17:45; Start 11/23/18 at 12:30; Stop 11/24/18 at 12:29 Sodium Chloride 1,000 ml @ 100 mls/hr Q10H IV Last administered on 11/23/18at 12:48; Start 11/23/18 at 12:19; Stop 11/24/18 at 12:18 Ondansetron HCl (Zofran) 4 mg PRN Q6HRS PRN IV NAUSEA/VOMITING; Start 11/23/18 at 13:15; Stop 11/24/18 at 13:14 Fentanyl Citrate (Fentanyl 2ml Vial) 25 mcg PRN Q5MIN PRN IV MILD PAIN; Start 11/23/18 at 13:15; Stop 11/24/18 at 13:14 Fentanyl Citrate (Fentanyl 2ml Vial) 50 mcg PRN Q5MIN PRN IV MODERATE TO SEVERE PAIN Last administered on 11/23/18at 16:16; Start 11/23/18 at 13:15; Stop 11/24/18 at 13:14 Morphine Sulfate (Morphine Sulfate) 1 mg PRN Q10MIN PRN IV SEVERE PAIN; Start 11/23/18 at 13:15; Stop 11/24/18 at 13:14 Ringer's Solution 1,000 ml @ 30 mls/hr Q24H IV ; Start 11/23/18 at 13:11; Stop 11/24/18 at 01:10; Status DC Lidocaine HCl (Xylocaine-Mpf 1% 2ml Vial) 2 ml PRN 1X PRN ID PRIOR TO IV START ; Start 11/23/18 at 13:15; Stop 11/24/18 at 13:14 Hydromorphone HCl (Dilaudid) 0.5 mg PRN Q10MIN PRN IV SEV PAIN, Second choice; Start 11/23/18 at 13:15; Stop 11/24/18 at 13:14 Prochlorperazine Edisylate (Compazine) 5 mg PACU PRN PRN IV NAUSEA, MRX1; Start 11/23/18 at 13:15; Stop 11/24/18 at 13:14 Rocuronium Upham (Zemuron) 50 mg STK-MED ONCE .ROUTE ; Start 11/23/18 at 13:16 ; Stop 11/23/18 at 13:17; Status DC Lidocaine HCl (Lidocaine Pf 2% Vial) 5 ml STK-MED ONCE .ROUTE ; Start 11/23/18 at 13:16; Stop 11/23/18 at 13:17; Status DC Propofol 20 ml @ As Directed STK-MED ONCE IV ; Start 11/23/18 at 13:16; Stop at 13:17; Status DC Dexamethasone Sodium Phosphate (Decadron) 20 mg STK-MED ONCE .ROUTE ; Start at 13:16; Stop 11/23/18 at 13:17; Status DC Bupivacaine HCl/ Epinephrine Bitart (Sensorcain-Mpf Epi 0.5%-1:[id number]) 30 ml STK -MED ONCE .ROUTE ; Start 11/23/18 at 13:18; Stop 11/23/18 at 13:19; Status DC Ondansetron HCl (Zofran) 4 mg STK-MED ONCE .ROUTE ; Start 11/23/18 at 13:16; Stop 11/23/18 at 13:19; Status DC Midazolam HCl (Versed) 2 mg STK-MED ONCE .ROUTE ; Start 11/23/18 at 13:19; Stop 11/23/18 at 13:20; Status DC Fentanyl Citrate (Fentanyl 5ml Vial) 250 mcg STK-MED ONCE .ROUTE ; Start at 13:19; Stop 11/23/18 at 13:20; Status DC Neostigmine Methylsulfate (Bloxiverz) 10 mg STK-MED ONCE .ROUTE ; Start at 14:38; Stop 11/23/18 at 14:39; Status DC Glycopyrrolate (Robinul) 1 mg STK-MED ONCE .ROUTE ; Start 11/23/18 at 14:39; Stop 11/23/18 at 14:40; Status DC Ketorolac Tromethamine (Toradol For Or Only) 30 mg STK-MED ONCE INJ ; Start at 15:00; Stop 11/23/18 at 15:01; Status DC Oxycodone/ Acetaminophen (Percocet 10/325) 1 tab PRN Q4HRS PRN PO MODERATE PAIN ; Start 11/23/18 at 15:30 Oxycodone/ Acetaminophen (Percocet 10/325) 2 tab PRN Q4HRS PRN PO SEVERE PAIN Last administered on 11/24/18at 07:21; Start 11/23/18 at 15:30 Sevoflurane (Ultane) 60 ml STK-MED ONCE IH ; Start 11/23/18 at 15:27; Stop 11/23 at 15:28; Status DC Fentanyl Citrate (Fentanyl 2ml Vial) 100 mcg STK-MED ONCE .ROUTE ; Start at 15:53; Stop 11/23/18 at 15:54; Status DC Prochlorperazine Edisylate (Compazine) 10 mg STK-MED ONCE .ROUTE ; Start at 15:53; Stop 11/23/18 at 15:54; Status DC Active Scripts Active Bactrim Ds Tablet (Sulfamethoxazole/Trimethoprim) 1 Each Tablet 1 Tab PO BID Earwax Treatment Drops (Carbamide Peroxide) 15 Ml Drops 15 Ml OT 5XDAY 4 Days 5-10gtt in ear BID Bactrim Ds Tablet (Sulfamethoxazole/Trimethoprim) 1 Each Tablet 1 Tab PO BID [place] 5-325 Tablet (Acetaminophen/Hydrocodone Bitart) 1 Each Tablet 1-2 Tab PO Q6HRS Ultram (Tramadol Hcl) 50 Mg Tablet 50 Mg PO Q6H PRN Bactrim Ds Tablet (Sulfamethoxazole/Trimethoprim) 1 Each Tablet 1 Tab PO BID 10 Days Vitals/I & O Vital Sign - Last 24 Hours 11/23/18 11/23/18 11/23/18 11/23/18 10:11 11:11 12:11 12:39 Temp 98.2 98.2 Pulse 61 68 56 Resp 18 18 18 18 B/P (MAP) 146/82 (103) 188/89 (122) 170/104 (126) Pulse Ox 99 97 100 100 O2 Delivery Room Air Room Air Room Air Room Air 11/23/18 11/23/18 11/23/18 11/23/18 12:40 13:37 15:15 15:15 Temp 97.8 97.4 97.8 97.4 Pulse 56 58 72 Resp 18 20 16 B/P (MAP) 178/91 (120) 129/71 154/87 Pulse Ox 100 98 100 O2 Delivery Room Air Room Air Simple Mask Mask O2 Flow Rate 10 10 11/23/18 11/23/18 11/23/18 11/23/18 15:30 15:45 16:00 16:15 Temp 97.4 97.4 Pulse 72 76 76 70 Resp 14 12 12 12 B/P (MAP) 156/86 160/84 153/90 148/87 Pulse Ox 100 97 99 98 O2 Delivery Simple Mask Room Air Room Air Room Air O2 Flow Rate 10 11/23/18 11/23/18 11/23/18 11/23/18 16:16 16:45 16:55 17:00 Pulse 83 86 Resp 14 B/P (MAP) 156/95 (115) 140/88 (105) Pulse Ox 99 95 94 O2 Delivery Room Air Room Air Room Air Room Air 11/23/18 11/23/18 11/23/18 11/23/18 17:15 17:30 17:45 17:45 Pulse 74 69 76 B/P (MAP) 155/92 (113) 176/98 (124) 153/96 (115) Pulse Ox 98 97 96 O2 Delivery Room Air Room Air Room Air Room Air 11/23/18 11/23/18 11/23/18 11/23/18 18:15 18:31 19:02 19:15 Temp 98.9 98.9 Pulse 77 75 Resp 14 16 18 B/P (MAP) 148/81 (103) 110/72 (85) Pulse Ox 98 96 O2 Delivery Room Air Room Air Room Air Room Air 11/23/18 11/23/18 11/23/18 11/23/18 20:00 20:59 23:00 23:01 Temp 98.1 98.1 98.1 98.1 Pulse 94 84 Resp 22 18 B/P (MAP) 152/82 (105) 139/82 (101) Pulse Ox 94 93 94 O2 Delivery Room Air Room Air Room Air Room Air O2 Flow Rate 10.0 11/24/18 11/24/18 11/24/18 11/24/18 00:01 03:09 03:31 04:09 Temp 98.2 98.2 Pulse 86 Resp 18 B/P (MAP) 127/67 (87) Pulse Ox 94 94 94 O2 Delivery Room Air Room Air Room Air O2 Flow Rate 10.0 10.0 11/24/18 07:21 Resp 16 O2 Delivery Room Air Intake and Output 11/23/18 11/23/18 11/24/18 15:00 23:00 07:00 Intake Total 1000 ml 1610 ml 540 ml Output Total 420 ml Balance 1000 ml 1190 ml 540 ml DAVIS MANNING MD Nov 24, 2018 07:39
[2018-11-24] MEDS: IV NORMAL SALINE 1000ML BAG 1,000 ML IV SCH (07:52)
[2018-11-24] MEDS ORDERED: ACETAMINOPHEN 500 MG TABLET PO PRN (08:45)
[2018-11-24] MEDS ORDERED: ONDANSETRON PF 4 MG/2 ML VIAL. IV PRN (08:45)
[2018-11-24] MEDS ORDERED: CLIN300C8 PO (10:41)
--- NOTE | 2018-11-24 10:43 | PDOC3 ---
Discharge Summary Visit Information Date of Admission: Nov 23, 2018 Date of Discharge: Nov 24, 2018 Admitting Diagnosis Comment: Acute appendicitis, mild inside a right inguinal hernia Cellulitis/wound suprapubic area Hypertension controlled YEVGENIY Obesity, BMI 35.2 Final Diagnosis Problems Medical Problems: (1) Abdominal pain Status: Acute (2) Appendicitis Status: Acute Brief Hospital Course Allergies Allergies Coded Allergies Type Severity Reaction Last Updated Verified No Known Drug Allergies 09/13/15 No Vital Signs Vital Signs Date Time Temp Pulse Resp B/P (MAP) Pulse Ox O2 Delivery O2 Flow Rate FiO2 11/24/18 08:29 16 Room Air 11/24/18 07:00 98.3 55 134/80 (98) 97 98.3 11/24/18 03:09 10.0 Lab Results Laboratory Tests Test 11/23/18 10:06 11/23/18 10:30 Urine Collection Type Unknown Urine Color Yellow Urine Clarity Clear Urine pH 5.0 Urine Specific [place] 1.015 Urine Protein Negative mg/dL (NEG-TRACE) Urine Glucose (UA) Negative mg/dL (NEG) Urine Ketones (Stick) Negative mg/dL (NEG) Urine Blood Small (NEG) Urine Nitrite Negative (NEG) Urine Bilirubin Negative (NEG) Urine Urobilinogen Dipstick 0.2 mg/dL (0.2 mg/dL) Urine Leukocyte Esterase Negative (NEG) Urine RBC 1-2 /HPF (0-2) Urine WBC 0 /HPF (0-4) Urine Squamous Epithelial Cells Occ /LPF Urine Bacteria 0 /HPF (0-FEW) White Blood Count 5.1 x10^3/uL (4.0-11.0) Red Blood Count 4.42 x10^6/uL (4.30-5.70) Hemoglobin 13.0 g/dL (13.0-17.5) Hematocrit 39.1 % (39.0-53.0) Mean Corpuscular Volume 88 fL (79-100) Mean Corpuscular Hemoglobin 29 pg (25-35) Mean Corpuscular Hemoglobin Concent 33 g/dL (31-37) Red Cell Distribution Width 15.3 % (11.5-14.5) Platelet Count 221 x10^3/uL (140-400) Neutrophils (%) (Auto) 63 % (31-73) Lymphocytes (%) (Auto) 27 % (24-48) Monocytes (%) (Auto) 6 % (0-9) Eosinophils (%) (Auto) 4 % (0-3) Basophils (%) (Auto) 0 % (0-3) Neutrophils # (Auto) 3.2 x10^3uL (1.8-7.7) Lymphocytes # (Auto) 1.4 x10^3/uL (1.0-4.8) Monocytes # (Auto) 0.3 x10^3/uL (0.0-1.1) Eosinophils # (Auto) 0.2 x10^3/uL (0.0-0.7) Basophils # (Auto) 0.0 x10^3/uL (0.0-0.2) Sodium Level 140 mmol/L (136-145) Potassium Level 4.0 mmol/L (3.5-5.1) Chloride Level 104 mmol/L (98-107) Carbon Dioxide Level 30 mmol/L (21-32) Anion Gap 6 (6-14) Blood Urea Nitrogen 12 mg/dL (8-26) Creatinine 1.1 mg/dL (0.7-1.3) Estimated GFR (Cockcroft-Gault) 92.2 BUN/Creatinine Ratio 11 (6-20) Glucose Level 132 mg/dL (70-99) Calcium Level 8.4 mg/dL (8.5-10.1) Total Bilirubin 0.2 mg/dL (0.2-1.0) Aspartate Amino Transf (AST/SGOT) 22 U/L (15-37) Alanine Aminotransferase (ALT/SGPT) 23 U/L (16-63) Alkaline Phosphatase 71 U/L (46-116) Total Protein 7.2 g/dL (6.4-8.2) Albumin 3.1 g/dL (3.4-5.0) Albumin/Globulin Ratio 0.8 (1.0-1.7) Brief Hospital Course Mr. Youngblood is a 33 old [place] male obese, admitted for acute abdominal pain was found to have mild appendicitis inside a right inguinal hernia. Lap appendectomy done by [facility] and course unremarkable. But he has some wound that is suprapubic area cellulitis that needs to be addressed first before they can fix the right inguinal hernia via mesh. He will follow-up with Dr. Rowan 2 weeks - pain medicine in chart He is has about 3 days left of Keflex given by PCP Dr. zheng. I have Bactrim seen on chart I have Rx clindamycin 300 4 times a day for 7 days. Discharge disposition home Procedures performed lap appendectomy Consults performed Instructions follow-up with her PCP Dr. norm Sr Discharge Information Condition at Discharge: Improved, Stable Follow Up: Weeks (2 weeks [facility]) Disposition/Orders: D/C to Home Scheduled Carbamide Peroxide (Earwax Treatment Drops) 15 Ml Drops, 15 ML OT 5XDAY for 4 Days, #1 5-10gtt in ear BID Prescribed by: LESTER ARNETT PA-C on 08/09/17 0810 Last Action: HELD on 11/24/18 08 by SARBJIT WONG Clindamycin Hcl (Clindamycin Hcl) 300 Mg Capsule, 300 MG PO QID for wound abd for 7 Days, #28 Prescribed by: SARBJIT WONG on 11/24/18 1041 Hydrocodone/Apap 5-325 ([place] 5-325 Tablet) 1 Each Tablet, 1-2 TAB PO Q6HRS, #15 Prescribed by: BRYANNA SUGGS on 02/13/17635 Last Action: Reviewed on 11/24/18 0844 by SARBJIT WONG Sulfamethoxazole/Trimethoprim (Bactrim Ds Tablet) 1 Each Tablet, 1 TAB PO BID for 10 Days Prescribed by: ABISAI GARCIA on 12/04/1632 Last Action: HELD on 11/24/1844 by SARBJIT WONG Sulfamethoxazole/Trimethoprim (Bactrim Ds Tablet) 1 Each Tablet, 1 TAB PO BID, # 14 Prescribed by: BRYANNA SUGGS on 02/13/17635 Last Action: HELD on 11/24/18 0844 by SARBJIT WONG Sulfamethoxazole/Trimethoprim (Bactrim Ds Tablet) 1 Each Tablet, 1 TAB PO BID, # 20 Prescribed by: Isa Taylor APRN on 10/09/18 1229 Last Action: HELD on 11/24/18 0845 by SARBJIT WONG Scheduled PRN Tramadol Hcl (Ultram) 50 Mg Tablet, 50 MG PO Q6H PRN for PAIN, #20 Prescribed by: ABISAI GARCIA on 12/04/1632 Last Action: Reviewed on 11/24/18 0844 by SARBJIT RUTH MD Nov 24, 2018 10:43
--- NOTE | 2018-11-24 10:53 | NUR ---
SW following, discussed with RN. RN advised no SW needs and anticipates pt will discharge home with self care today. SW will continue to follow.
[2018-11-24 11:00] VITALS: BP 125/70
--- NOTE | 2018-11-24 14:00 | NUR ---
Wound Care: Consult to eval and treat groin abscesses and RLE wounds. Pt states RLE wound has been present for about 2 months and is believed to have originated after bumping his leg on something in his home. Curently the wound is draining a scant amount of serosanguinous drainage and has a scaly scab over it. Covered with xeroform and foam dressing and educated pt to change every 3 days. Packed open areas to groin with aquacel AG rope and covered with ABD. present at bedside to witness dressing and packing process. Educated regarding wound care and advised not to shower with open wounds. Will contact pt to set up outpatient clinic appointment for further wound follow up/
--- NOTE | 2018-11-24 15:18 | NUR ---
Discharge instructions reviewed with patient, verbalized understanding. Patient was escorted out of hospital via ambulation by Johnna CABRAL and accompanied by his significant other.
--- NOTE | 2018-11-26 17:10 | PATHOLOGY ---
[facility] Accession Number: [id number] . 01 Material submitted: . APPENDIX . 01 Clinical history: . Acute appendicitis . 02 Diagnosis: Appendix, laparoscopic appendectomy: - Focal slight acute inflammation of appendiceal mucosa. (JPM:tano; 11/26/2018) QMS/11/26/2018 . 02 Comment: The appendiceal mucosa is intact and shows no evidence of ulceration. There is focal slight acute inflammation of the appendiceal mucosa. However, there is no acute inflammation within the submucosa or fibromuscular wall of the appendix. There is no evidence of malignancy. (JPM:tano; 11/26/2018) . 02 Electronically signed: . Oscar Perkins MD, Pathologist NPI- [id number] . 01 Gross description: . The specimen is received in formalin, labeled "Rigoberto Youngblood, appendix". Received is a vermiform appendix measuring 5.6 cm in length by up to 1.2 cm in diameter with a large amount of attached mesoappendix. The serosal surface is pale ponce and smooth in appearance. The proximal margin is inked. Sectioning reveals a patent to dilated lumen filled with fecal material. No distinct nodules or lesions are noted grossly. The specimen is submitted representatively in cassettes A1 and A2, with the proximal margin and bisected tips submitted in cassette A1. (CAA; 11/25/2018) QAC/QAC . 02 Pathologist provided ICD-10: K35.80 . 02 CPT . 209650 Specimen Comment: A courtesy copy of this report has been sent to Specimen Comment: [phone], . Specimen Comment: Report sent to / DR TAYLOR Specimen Comment: A duplicate report has been generated due to demographic updates. Performed at: 01 [facility] [address], [place] [id number] MD Oliver Quiroz MD Phone: [phone] Performed at: 02 [facility] [address] [place], [place] [id number] MD Oscar Perkins MD Phone: [phone]
== END 2018-11-24 15:20 | disposition home or self-care (01) | DRG 342 ==
LOC: ER 09:56 → 4 NORTH 13:00
PROVIDERS: ADMIT Family Medicine; ATTEND Family Medicine
PROC: 0DTJ4ZZ Resection of Appendix, Percutaneous Endoscopic Approach (ICD-10-PCS; principal; 2018-11-23 13:30)
DX: K35.80 Unspecified acute appendicitis (principal); L03.311 Cellulitis of abdominal wall; I10 Essential (primary) hypertension; G47.33 Obstructive sleep apnea (adult) (pediatric); K80.20 Calculus of gallbladder without cholecystitis without obstruction; K42.9 Umbilical hernia without obstruction or gangrene; K40.90 Unilateral inguinal hernia, without obstruction or gangrene, not specified as recurrent; E66.9 Obesity, unspecified; Z82.49 Family history of ischemic heart disease and other diseases of the circulatory system; Z68.35 Body mass index [BMI] 35.0-35.9, adult
CPT/HCPCS: 36415; 74177; 80053; 81001; 85025; 88304; 96361; 96374; A7015; J1100; J1885; J2001; J2250; J2405; J2704; J2710; J3010; J3490; J7030; J7120; Q9967; 99285-25

== ENCOUNTER 2018-12-07 13:04 | Emergency (ER) | payer BC ==
[~2018-12-07] VITALS: Ht 188 cm; Wt 120.2 kg
[~2018-12-07 13:04] MED LIST changes: +CLIN300C8 PO
[2018-12-07] MEDS ORDERED: IOHEXOL 300 MG/ML 100ML VIAL. ONE (14:08)
[2018-12-07] MEDS ORDERED: CONTRAST GIVEN. MC PRN (14:15)
[2018-12-07] MEDS ORDERED: IOHEXOL 300 MG/ML 100ML VIAL. IV ONE (14:15)
[2018-12-07 14:31] LABS: BASO % 1 % (0-3); EOS # 0.2 x10^3/uL (0.0-0.7); EOS % 4 % (0-3); HEMATOCRIT 39.7 % (39.0-53.0); HEMOGLOBIN 13.1 g/dL (13.0-17.5); LYMPH # 1.3 x10^3/uL (1.0-4.8); LYMPH % 25 % (24-48); MEAN CORPUSCULAR HEMOGLOBIN 29 pg (25-35); MEAN CORPUSCULAR HGB CONC 33 g/dL (31-37); MEAN CORPUSCULAR VOLUME 88 fL (79-100); MONO # 0.3 x10^3/uL (0.0-1.1); MONO % 6 % (0-9); NEUT # 3.3 x10^3uL (1.8-7.7); NEUT % 64 % (31-73); PLATELET COUNT 231 x10^3/uL (140-400); RED BLOOD COUNT 4.53 x10^6/uL (4.30-5.70); RED CELL DISTRIBUTION WIDTH 15.3 % (11.5-14.5); WHITE BLOOD COUNT 5.2 x10^3/uL (4.0-11.0)
[2018-12-07 14:42] LABS: BILIRUBIN,URINE NEGATIVE (NEG); COLOR,URINE YELLOW; NITRITE,URINE NEGATIVE (NEG); PROTEIN,URINE NEGATIVE (NEG-TRACE); UROBILINOGEN,URINE 0.2 mg/dL (0.2 mg/dL)
[2018-12-07 14:51] LABS: CALCIUM 8.8 mg/dL (8.5-10.1); CREATININE 0.9 mg/dL (0.7-1.3); GFR 116.2; POTASSIUM 4.3 mmol/L (3.5-5.1)
[2018-12-07 14:51] LABS: CLARITY,URINE CLEAR
[2018-12-07 14:52] LABS: BACTERIA,URINE 0 /HPF (0-FEW); RBC,URINE 0 /HPF (0-2); SQUAMOUS EPITHELIAL CELL,UR OCC /LPF; WBC,URINE 0 /HPF (0-4)
--- NOTE | 2018-12-07 14:58 | RAD ---
EXAM: Abdomen and pelvis CT with intravenous contrast. HISTORY: Left-sided abdominal pain after lifting. TECHNIQUE: Computed tomographic images of the abdomen and pelvis were obtained following the administration of 75 cc Omnipaque 300 intravenous contrast. Multiplanar reformatting was performed. *One or more of the following individualized dose reduction techniques were utilized for this examination: 1. Automated exposure control. 2. Adjustment of the mA and/or kV according to patient size. 3. Use of iterative reconstruction technique. COMPARISON: 11/23/2018. FINDINGS: Evaluation of the lower thorax demonstrates left posterior dependent atelectasis. There is no infiltrate or pleural effusion. The heart is normal in size. There is an upper normal to mildly enlarged liver. There is cholelithiasis. The pancreas and spleen are unremarkable. There are bilateral adrenal nodules, measuring 2.8 cm on the right and 2.0 cm on the left. There is a tiny cortical cyst within the upper pole of the right kidney. There is no evidence of obstructive uropathy. There has been an interval appendectomy. There are surgical clips and a surgical anastomosis within the right lower quadrant and there are 2 surgical clips within a small right inguinal hernia. There is mild increased soft tissue density within the hernia sac which may be due to postoperative change or scar/granulation tissue. No herniated loop of bowel is seen. There is no evidence of fat incarceration. There is slight diastasis the ventral abdominal wall musculature. The bladder is decompressed. There is no lymphadenopathy. There is no suspicious osseous lesion. No fracture is seen. IMPRESSION: 1. Findings consistent with interval appendectomy. There are associated surgical clips within the right lower quadrant, 2 of which appear to be displaced within a small fat-containing inguinal hernia. There is increased soft tissue density and slight stranding within the hernia sac which may be due to relative recent postsurgical change or early scar/granulation tissue. No drainable fluid collection is seen. 2. Cholelithiasis. 3. Bilateral adrenal nodules, measuring 2.8 cm of the right and 2.0 cm a left. The stability of these nodules compared to a CT dated 04/20/2017 is a benign etiology such as adenomas or benign nodular thickening of the adrenal glands. 4. Diastasis of the ventral abdominal wall muscular without annalise herniation. Electronically signed by: Haley Doss MD (12/07/2018 2:55 PM) [id number]
[2018-12-07 14:59] LABS: BARBITURATES NEG (NEG); BENZODIAZEPINES NEG (NEG); CANNABINOIDS POS (NEG); COCAINE NEG (NEG); METHADONE NEG (NEG); OPIATES NEG (NEG); PHENCYCLIDINE NEG (NEG)
[2018-12-07 15:01] LABS: ALBUMIN/GLOBULIN RATIO 0.7 (1.0-1.7); TOTAL BILIRUBIN 0.3 mg/dL (0.2-1.0); TOTAL PROTEIN 7.2 g/dL (6.4-8.2)
[2018-12-07 15:04] LABS: AMPHETAMINE/METHAMPHETAMINE NEG (NEG)
--- NOTE | 2018-12-07 15:52 | PHYS DOC ---
Past Medical History Past Medical History: Hypertension Additional Past Medical Histor: SLEEP APNEA, ABDOMINAL AND INGUINAL HERNIAS Past Surgical History: Appendectomy, Tonsillectomy, Other Additional Past Surgical Histo: left index finger Alcohol Use: Rarely Drug Use: None Adult General Chief Complaint Chief Complaint: ABDOMINAL PAIN HPI HPI Patient is a 33 year old female with history of hypertension who presents to the ED today complaining of 8 out of 10 throbbing intermittent left lower quadrant abdominal pain that began yesterday after he lifted an aluminium panels at work. Patient denies any nausea vomiting. He states he had appendectomy done at [facility] on October [id number]. He states he has not followed up with the general surgeon yet. Review of Systems Review of Systems Constitutional: Denies fever or chills [] Eyes: Denies change in visual acuity, redness, or eye pain [] HENT: Denies nasal congestion or sore throat [] Respiratory: Denies cough or shortness of breath [] Cardiovascular: No additional information not addressed in HPI [] GI: Reports left lower quadrant abdominal pain, denies nausea, vomiting, bloody stools or diarrhea [] : Denies dysuria or hematuria [] Musculoskeletal: Denies back pain or joint pain [] Integument: Denies rash or skin lesions [] Neurologic: Denies headache, focal weakness or sensory changes [] All other systems were reviewed and found to be within normal limits, except as documented in this note. Current Medications Current Medications Current Medications Medications (Trade) Dose Ordered Sig/Charly Start Time Stop Time Status Last Admin Dose Admin Info (CONTRAST GIVEN -- Rx MONITORING) 1 each PRN DAILY PRN 12/07/18 14:15 12/09/18 14:14 Iohexol (Omnipaque 300 Mg/ml) 100 ml STK-MED ONCE 12/07/18 14:08 12/07/18 14:10 DC Allergies Allergies Allergies Coded Allergies Type Severity Reaction Last Updated Verified No Known Drug Allergies 09/13/15 No Physical Exam Physical Exam Constitutional: Well developed, well nourished, no acute distress, non-toxic appearance. [] HENT: Normocephalic, atraumatic, bilateral external ears normal, oropharynx moist, no oral exudates, nose normal. [] Eyes: PERRLA, EOMI, conjunctiva normal, no discharge. [] Neck: Normal range of motion, no tenderness, supple, no stridor. [] Cardiovascular:Heart rate regular rhythm, no murmur [] Lungs & Thorax: Bilateral breath sounds clear to auscultation [] Abdomen: Obese abdomen, multiple Steri-Strips noted on the left lower quadrant, and pelvic region consistent with laparoscopy appendectomy. No signs of infection around the surgical sites. No drainage. Bowel sounds normal, soft, diffuse tenderness on palpation of the left mid and lower abdomen, no right lower or right upper quadrant tenderness, no masses, no pulsatile masses. [] Skin: Warm, dry, no erythema, no rash. [] Back: No tenderness, no CVA tenderness. [] Extremities: No tenderness, no cyanosis, no clubbing, ROM intact, no edema. [] Neurologic: Alert and oriented X 3, normal motor function, normal sensory function, no focal deficits noted. [] Psychologic: Affect normal, judgement normal, mood normal. [] Current Patient Data Vital Signs Vital Signs Date Time Temp Pulse Resp B/P (MAP) Pulse Ox O2 Delivery O2 Flow Rate FiO2 12/07/18 13:20 98.7 79 16 147/78 (101) 97 Room Air 98.7 Lab Values Laboratory Tests Test 12/07/18 14:22 12/07/18 14:35 White Blood Count 5.2 x10^3/uL (4.0-11.0) Red Blood Count 4.53 x10^6/uL (4.30-5.70) Hemoglobin 13.1 g/dL (13.0-17.5) Hematocrit 39.7 % (39.0-53.0) Mean Corpuscular Volume 88 fL (79-100) Mean Corpuscular Hemoglobin 29 pg (25-35) Mean Corpuscular Hemoglobin Concent 33 g/dL (31-37) Red Cell Distribution Width 15.3 % (11.5-14.5) H Platelet Count 231 x10^3/uL (140-400) Neutrophils (%) (Auto) 64 % (31-73) Lymphocytes (%) (Auto) 25 % (24-48) Monocytes (%) (Auto) 6 % (0-9) Eosinophils (%) (Auto) 4 % (0-3) H Basophils (%) (Auto) 1 % (0-3) Neutrophils # (Auto) 3.3 x10^3uL (1.8-7.7) Lymphocytes # (Auto) 1.3 x10^3/uL (1.0-4.8) Monocytes # (Auto) 0.3 x10^3/uL (0.0-1.1) Eosinophils # (Auto) 0.2 x10^3/uL (0.0-0.7) Basophils # (Auto) 0.0 x10^3/uL (0.0-0.2) Sodium Level 142 mmol/L (136-145) Potassium Level 4.3 mmol/L (3.5-5.1) Chloride Level 105 mmol/L (98-107) Carbon Dioxide Level 31 mmol/L (21-32) Anion Gap 6 (6-14) Blood Urea Nitrogen 13 mg/dL (8-26) Creatinine 0.9 mg/dL (0.7-1.3) Estimated GFR (Cockcroft-Gault) 116.2 BUN/Creatinine Ratio 14 (6-20) Glucose Level 93 mg/dL (70-99) Calcium Level 8.8 mg/dL (8.5-10.1) Total Bilirubin 0.3 mg/dL (0.2-1.0) Aspartate Amino Transferase (AST) 17 U/L (15-37) Alanine Aminotransferase (ALT) 23 U/L (16-63) Alkaline Phosphatase 65 U/L (46-116) Total Protein 7.2 g/dL (6.4-8.2) Albumin 3.0 g/dL (3.4-5.0) L Albumin/Globulin Ratio 0.7 (1.0-1.7) L Lipase 255 U/L (73-393) Ethyl Alcohol Level < 10 mg/dL (0-10) Urine Collection Type Unknown Urine Color Yellow Urine Clarity Clear Urine pH 5.0 Urine Specific [place] 1.015 Urine Protein Negative mg/dL (NEG-TRACE) Urine Glucose (UA) Negative mg/dL (NEG) Urine Ketones (Stick) Negative mg/dL (NEG) Urine Blood Negative (NEG) Urine Nitrite Negative (NEG) Urine Bilirubin Negative (NEG) Urine Urobilinogen Dipstick 0.2 mg/dL (0.2 mg/dL) Urine Leukocyte Esterase Negative (NEG) Urine RBC 0 /HPF (0-2) Urine WBC 0 /HPF (0-4) Urine Squamous Epithelial Cells Occ /LPF Urine Bacteria 0 /HPF (0-FEW) Urine Mucus Marked /LPF Urine Opiates Screen Neg (NEG) Urine Methadone Screen Neg (NEG) Urine Barbiturates Neg (NEG) Urine Phencyclidine Screen Neg (NEG) Urine Amphetamine/Methamphetamine Neg (NEG) Urine Benzodiazepines Screen Neg (NEG) Urine Cocaine Screen Neg (NEG) Urine Cannabinoids Screen Pos (NEG) Urine Ethyl Alcohol Neg (NEG) Laboratory Tests 12/07/18 14:22 Laboratory Tests 12/07/18 14:22 EKG EKG [] Radiology/Procedures Radiology/Procedures [] Course & Med Decision Making Course & Med Decision Making Pertinent Labs and Imaging studies reviewed. (See chart for details) This is a 33 mile patient presenting to the ED today complaining of left lower quadrant abdominal pain, patient had appendectomy done on November 24, 2018. He went to work yesterday and lifted a couple heavy items and the pain began. CBC CMP lipase with no acute findings, CT of the abdomen and pelvic - results discussed with Dr. Hair. He was okay with patient going home and following up with them in the clinic. Patient instructed not to lift anything heavier than a gallon of milk. Note for work provided. Dragon Disclaimer Dragon Disclaimer This electronic medical record was generated, in whole or in part, using a voice recognition dictation system. Departure Departure Impression: Primary Impression: Abdominal pain Additional Impressions: Abdominal wall strain Diastasis, muscle Disposition: 01 HOME, SELF-CARE Condition: STABLE Referrals: NO PCP (PCP) DAVIS MANNING MD Please call his office and schedule an appointment if you do not have one Patient Instructions: Abdominal Pain, Muscle Strain Additional Instructions: You were evaluated in the emergency room for abdominal pain, we highly suspect you strained your abdominal muscles from lifting at work. Avoid lifting anything greater than a gallon of milk for 2 weeks. Follow-up with the general surgeon as scheduled. Problem Qualifiers Primary Impression: Abdominal pain Abdominal location: left lower quadrant Qualified Codes: R10.32 - Left lower quadrant pain Additional Impressions: Abdominal wall strain Encounter type: initial encounter Qualified Codes: S39.011A - Strain of muscle, fascia and tendon of abdomen, initial encounter MIKI MORIN APRN Dec 07, 2018 15:52
[2018-12-07 16:16] VITALS: BP 126/65
== END 2018-12-07 16:37 | disposition home or self-care (01) ==
LOC: ER 13:04
DX: S39.011A Strain of muscle, fascia and tendon of abdomen, initial encounter (principal); M62.08 Separation of muscle (nontraumatic), other site; I10 Essential (primary) hypertension; E66.9 Obesity, unspecified; Z68.34 Body mass index [BMI] 34.0-34.9, adult; Z90.89 Acquired absence of other organs
CPT/HCPCS: 36415; 74177; 80053; 80307; 81001; 83690; 85025; 99284; G0480; Q9967

== ENCOUNTER 2020-03-19 05:34 | Emergency (ER) | payer SELFPAY ==
[~2020-03-19] VITALS: Ht 188 cm; Wt 118.1 kg
[2020-03-19] MEDS ORDERED: ORPHENADRINE CITRATE 60 MG/2 ML VIAL. IM ONE (07:00)
[2020-03-19] MEDS ORDERED: methylPREDNISolone ACETATE 80 MG/ML VIAL. INT ART ONE (07:00)
[2020-03-19] MEDS ORDERED: KETOROLAC 60 MG/2 ML VIAL. IM ONE (07:00)
[2020-03-19] MEDS ORDERED: LIDOCAINE 1% PF 2 ML VIAL. INJ ONE (07:00)
--- NOTE | 2020-03-19 07:02 | PHYS DOC ---
Past Medical History Past Medical History: Hypertension Additional Past Medical Histor: SLEEP APNEA, ABDOMINAL AND INGUINAL HERNIAS Past Surgical History: Appendectomy, Tonsillectomy, Other Additional Past Surgical Histo: left index finger Smoking Status: Never Smoker Alcohol Use: None Drug Use: None General Adult EDM: Chief Complaint: BACK PAIN - NO INJURY HPI: HPI: Patient is a 34-year-old otherwise healthy male who works at [employer] and [employer] who presents with a couple different complaints. First, he states that he is having a lot of back pain in the lumbar region. He states this is worse when he tries to stand up for long periods of time and walk. Much worse when he tries to get up from a seated position. He denies any radicular symptoms. He denies any bowel or bladder dysfunction. Also, he complains of left knee pain. He states that knee aches and is worse with movement specifically he feels like at times that it locks and he is unable to extend it. He also states that he feels like it is swollen. He denies any specific injury that he can remember. [] Review of Systems: Review of Systems: [Constitutional: Denies fever or chills [] Eyes: Denies change in visual acuity, redness, or eye pain [] HENT: Denies nasal congestion or sore throat [] Respiratory: Denies cough or shortness of breath [] Cardiovascular: No additional information not addressed in HPI [] GI: Denies abdominal pain, nausea, vomiting, bloody stools or diarrhea [] : Denies dysuria or hematuria [] Musculoskeletal: Per HPI [] Integument: Denies rash or skin lesions [] Neurologic: Denies headache, focal weakness or sensory changes [] Endocrine: Denies polyuria or polydipsia [] All other systems were reviewed and found to be within normal limits, except as documented in this note] Heart Score: Risk Factors: Risk Factors: DM, Current or recent (<one month) smoker, HTN, HLP, family history of CAD, obesity. Risk Scores: Score 0 - 3: 2.5% MACE over next 6 weeks - Discharge Home Score 4 - 6: 20.3% MACE over next 6 weeks - Admit for Clinical Observation Score 7 - 10: 72.7% MACE over next 6 weeks - Early Invasive Strategies Current Medications: Current Medications Medications (Trade) Dose Ordered Sig/Charly Start Time Stop Time Status Last Admin Dose Admin Ketorolac Tromethamine (Toradol Im) 60 mg 1X ONCE 03/19/20 07:00 03/19/20 07:01 Lidocaine HCl (Xylocaine-Mpf 1% 2ml Vial) 5 ml 1X ONCE 03/19/20 07:00 03/19/20 07:01 Methylprednisolone Acetate (DEPO-Medrol 80MG VIAL) 80 mg 1X ONCE 03/19/20 07:00 03/19/20 07:01 Orphenadrine Citrate (Norflex) 60 mg 1X ONCE 03/19/20 07:00 03/19/20 07:01 Allergies: Allergies: Allergies Coded Allergies Type Severity Reaction Last Updated Verified No Known Drug Allergies 09/13/15 No Physical Exam: PE: Constitutional: Well developed, well nourished, mild distress, non-toxic appearance. [] HENT: Normocephalic, atraumatic, bilateral external ears normal, oropharynx moist, no oral exudates, nose normal. [] Eyes: PERRLA, EOMI, conjunctiva normal, no discharge. [] Neck: Normal range of motion, no tenderness, supple, no stridor. [] Cardiovascular:Heart rate regular rhythm, no murmur [] Lungs & Thorax: Bilateral breath sounds clear to auscultation [] Abdomen: Bowel sounds normal, soft, no tenderness, no masses, no pulsatile masses. [] Skin: Warm, dry, no erythema, no rash. [] Back: Lumbar paraspinal muscle spasm no midline vertebral tenderness. [] Extremities: There does appear to be some intra-articular swelling to the left knee decreased range of motion secondary to pain. [] Neurologic: Alert and oriented X 3, normal motor function, normal sensory function, no focal deficits noted. [] Psychologic: Affect normal, judgement normal, mood normal. [] Current Patient Data: Vital Signs: Vital Signs Date Time Temp Pulse Resp B/P (MAP) Pulse Ox O2 Delivery O2 Flow Rate FiO2 03/19/20 06:08 98.1 73 16 151/76 (101) 98 Room Air 98.1 EKG: EKG: [] Radiology/Procedures: Radiology/Procedures: [] Impression: REASON: Left knee pain twisted at work 2 months ago PROCEDURE: KNEE LEFT 3V EXAM: Left knee, 3 views. HISTORY: Pain. COMPARISON: None. FINDINGS: 3 views of the left knee are obtained. There is no fracture, dislocation or subluxation. There is a small joint effusion. IMPRESSION: 1. No acute osseous finding. 2. Small joint effusion. Course & Med Decision Making: Course & Med Decision Making Pertinent Labs and Imaging studies reviewed. (See chart for details) [Procedure: Left knee injection The lateral joint space was identified and then cleaned with alcohol then using 80 mg of Depo-Medrol and 5 cc of 1% lidocaine 25-gauge inch and a half needle was inserted into the left knee joint medication injected needle removed without complication. Patient experienced immediate relief of his symptoms.] Dragon Disclaimer: DragVenyo Disclaimer: This electronic medical record was generated, in whole or in part, using a voice recognition dictation system. Departure Departure Impression: Primary Impression: Lumbar strain Qualified Codes: S39.012A - Strain of muscle, fascia and tendon of lower back, initial encounter Additional Impression: Left knee pain Qualified Codes: M25.562 - Pain in left knee Disposition: HOME, SELF-CARE Condition: STABLE Referrals: NO PCP (PCP) Patient Instructions: Back Pain, Adult, Joint Injection, Care After Additional Instructions: Return to the emergency department with any new or concerning symptoms Scripts Methocarbamol (ROBAXIN-750) 750 Mg Tablet 1 TAB PO TID, #60 TAB Prov: ALEM CONNOLLY DO 03/19/20 Naproxen (NAPROXEN) 500 Mg Tablet 1 TAB PO BID PRN for PAIN, #30 TAB 1 Refill Prov: ALEM CONNOLLY DO 03/19/20 Justicifation of Admission Dx: Justifications for Admission: Justification of Admission Dx: ALEM Galloway DO Mar 19, 2020 07:01
--- NOTE | 2020-03-19 07:09 | RAD ---
EXAM: Left knee, 3 views. HISTORY: Pain. COMPARISON: None. FINDINGS: 3 views of the left knee are obtained. There is no fracture, dislocation or subluxation. There is a small joint effusion. IMPRESSION: 1. No acute osseous finding. 2. Small joint effusion. Electronically signed by: Haley Doss MD (03/19/2020 7:06 AM) [id number]
[2020-03-19] MEDS ORDERED: METH-38 PO (08:07)
[2020-03-19] MEDS ORDERED: NAPR-514 PO (08:07)
[2020-03-19 08:10] VITALS: BP 135/83
== END 2020-03-19 08:10 | disposition home or self-care (01) ==
LOC: ER 05:34
DX: S39.012A Strain of muscle, fascia and tendon of lower back, initial encounter (principal); M25.562 Pain in left knee; R60.0 Localized edema; I10 Essential (primary) hypertension; Z90.89 Acquired absence of other organs; Z98.890 Other specified postprocedural states; X50.9XXA Other and unspecified overexertion or strenuous movements or postures, initial encounter; Y93.89 Activity, other specified; Y92.89 Other specified places as the place of occurrence of the external cause; Y99.8 Other external cause status
CPT/HCPCS: 20610; 73562; 96372; 99284; J1040; J1885; J2360; J3490

== ENCOUNTER 2021-05-29 12:38 | Emergency (ER) | payer BC ==
[~2021-05-29] VITALS: Ht 188 cm; Wt 162.0 kg
[~2021-05-29 12:38] MED LIST changes: +ACET325T21 PO; +ALBU2.5V8 NEB; +AMLO-187 PO; +BUDE0.5A NEB; -CLIN300C8 PO; +CLIN300C9 PO; +METH-38 PO; +NAPR-514 PO
--- NOTE | 2021-05-29 14:32 | PHYS DOC ---
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 He denies any acute symptoms today. He is currently taking amlodipine 10 mg daily, but notes that he did not take this medicine this morning because he went to his appointment. He was told after this blood pressure reading to go to the nearest emergency department. Currently his blood pressure is much lower than in the clinic. He states that he felt stressed going to do different appointments today. He denies any further symptoms today. The patient denies nausea, vomiting, fever, chills, chest pain, shortness of breath, abdominal pain, urinary symptoms, cough, recent trauma, or any other complaints. Review of Systems: Review of Systems: ROS is otherwise negative except for what was mentioned in the HPI Heart Score: C/O Chest Pain: No Allergies: Allergies: Allergies Coded Allergies Type Severity Reaction Last Updated Verified lisinopril Adverse Reaction Intermediate 05/29/21 Yes Uncoded Allergies Type Severity Reaction Last Updated Verified CONTRAST Allergy Unknown 05/29/21 Physical Exam: PE: General: No acute distress. HEENT: Normocephalic, Normal hearing. Visual acuity grossly intact. Neck: Supple, Full range of motion without tenderness. Respiratory: Airway intact, normal phonation, vocalizing. No signs of accessory muscle use or respiratory distress. Cardiovascular: Normal rate, Extremities appear well perfused. Musculoskeletal: Normal range of motion. No deformity. Ambulatory. Integumentary: No pallor, No jaundice. Neurologic: Alert, Oriented. Moves all extremities independently. Psychiatric: Cooperative Current Patient Data: Vital Signs: Vital Signs Date Time Temp Pulse Resp B/P (MAP) Pulse Ox O2 Delivery O2 Flow Rate FiO2 05/29/21 13:49 98.8 94 17 154/98 97 Room Air 98.8 EKG: EKG: [] Course & Med Decision Making: Course & Med Decision Making Patient was without symptoms at this time. His blood pressure is as above, much lower than it was in the clinic. He has not taken his blood pressure medicine today. I advised him to take his medicine as prescribed when he gets home and follow-up with his doctor, he does have an appointment in 6 days. No signs of acute endorgan damage at this time. Patient was discharged in stable condition. He was comfortable with the plan and return precautions were discussed Departure Departure Impression: Primary Impression: Essential hypertension Disposition: HOME / SELF CARE / HOMELESS Condition: STABLE Referrals: NO PCP (PCP) Patient Instructions: Hypertension, [id number] Additional Instructions: You were seen in the emergency department for hypertension, or high blood pressure. You need to follow up with the medicine clinic or your primary care doctor for further evaluation and treatment of your blood pressure. You should return to the ED if you develop chest pain, shortness of breath, severe headache, or any other new or concerning symptoms. We started you on a low dose of blood pressure medication, but you may need more than one medication and should have a primary doctor that can further investigate your blood pressure issues. Losing some weight and improving your diet will be helpful in reducing your blood pressure as well. CORA BRIZUELA DO May 29, 2021 14:32
[2021-05-29 15:06] VITALS: BP 149/79
== END 2021-05-29 15:06 | disposition home or self-care (01) ==
LOC: ER 12:38
DX: I10 Essential (primary) hypertension (principal); F17.200 Nicotine dependence, unspecified, uncomplicated; Z88.6 Allergy status to analgesic agent; Z91.041 Radiographic dye allergy status
CPT/HCPCS: 99281

== ENCOUNTER 2021-07-01 14:34 | Emergency (ER) | payer BC ==
[~2021-07-01] VITALS: Ht 188 cm; Wt 152.0 kg
[~2021-07-01 14:34] MED LIST changes: +CLIN-94 PO; -CLIN300C9 PO
--- NOTE | 2021-07-01 16:11 | PHYS DOC ---
Past Medical History Past Medical History: Hypertension Additional Past Medical Histor: SLEEP APNEA, ABDOMINAL AND INGUINAL HERNIAS Past Surgical History: No Surgical History Additional Past Surgical Histo: left index finger Smoking Status: Current Some Day Smoker Alcohol Use: None Drug Use: None General Adult EDM: Chief Complaint: GROIN PAIN HPI: HPI: Patient is a 35 year old male with history of borderline DM, HTN who presents with right testicular pain starting this morning abruptly at 5 AM. Was feeling okay yesterday. Painful with the touch. Denies any skin changes. No fever/chills. No pain with urination, hematuria, or recent penile discharge. No rectal fullness or pain. When he touches his right testicle, he feels the pain radiate up towards his groin/pelvis. No history of similar discomfort Review of Systems: Review of Systems: Constitutional: Denies fever or chills. [] Eyes: Denies change in visual acuity. [] HENT: Denies nasal congestion or sore throat. [] Respiratory: Denies cough or shortness of breath. [] Cardiovascular: Denies chest pain or edema. [] GI: Denies abdominal pain, nausea, vomiting, bloody stools or diarrhea. [] : Tender testicle and epididymis. Epididymis and spermatic cord feels enl arged when compared to the left. No overlying skin changes or perennial tenderness to palpation. No penile discharge. Musculoskeletal: Denies back pain or joint pain. [] Integument: Denies rash. [] Neurologic: Denies headache, focal weakness or sensory changes. [] Endocrine: Denies polyuria or polydipsia. [] Lymphatic: Denies swollen glands. [] Psychiatric: Denies depression or anxiety. [] Heart Score: C/O Chest Pain: No Risk Factors: Risk Factors: DM, Current or recent (<one month) smoker, HTN, HLP, family history of CAD, obesity. Risk Scores: Score 0 - 3: 2.5% MACE over next 6 weeks - Discharge Home Score 4 - 6: 20.3% MACE over next 6 weeks - Admit for Clinical Observation Score 7 - 10: 72.7% MACE over next 6 weeks - Early Invasive Strategies Allergies: Allergies: Allergies Coded Allergies Type Severity Reaction Last Updated Verified lisinopril Adverse Reaction Intermediate 05/29/21 Yes Uncoded Allergies Type Severity Reaction Last Updated Verified CONTRAST Allergy Unknown 05/29/21 Physical Exam: PE: Constitutional: Well developed, well nourished, no acute distress, non-toxic appearance. [] HENT: Normocephalic, atraumatic, bilateral external ears normal, oropharynx moist, no oral exudates, nose normal. [] Eyes: PERRLA, EOMI, conjunctiva normal, no discharge. [] Neck: Normal range of motion, no tenderness, supple, no stridor. [] Cardiovascular:Heart rate regular rhythm, no murmur [] Lungs & Thorax: Bilateral breath sounds clear to auscultation [] Abdomen: Bowel sounds normal, soft, no tenderness, no masses, no pulsatile masses. [] Skin: Warm, dry, no erythema, no rash. [] Back: No tenderness, no CVA tenderness. [] Extremities: No tenderness, no cyanosis, no clubbing, ROM intact, no edema. [] Neurologic: Alert and oriented X 3, normal motor function, normal sensory function, no focal deficits noted. [] Psychologic: Affect normal, judgement normal, mood normal. [] EKG: EKG: [] Radiology/Procedures: Radiology/Procedures: [] Impression: [facility] [address] [facility] [place] [address] IMAGING REPORT Signed PATIENT: MAYNOR HUERTAS ACCOUNT: [id number] : 1985 LOCATION: ER AGE: 35 SEX: M EXAM STATUS: REG ER ORD. PHYSICIAN: KURT GAMBOA MD REASON: R testicular pain, atraumatic PROCEDURE: TESTICULAR/SCROTUM CLINICAL HISTORY: Reason: R testicular pain, atraumatic / Spl. Instructions: / History: COMPARISON: None available. TECHNIQUE: Ultrasound images of the scrotum was performed with rutledge-scale and color doppler. FINDINGS: The right testis measures 5.0 x 2.9 x 2.1 cm. The left testis measures 4.5 x 2.9 x 2.0 cm. Blood flow identified in the right and left testis. Minimal prominent vascularity identified in the right scrotum could be small varicocele. Trace bilateral hydroceles. IMPRESSION: 1. Minimal prominent vascularity identified in the right scrotum could be small varicocele. 2. Small bilateral hydroceles.. Electronically signed by: Sal Garcia MD (07/01/2021 5:11 PM) [id number] DICTATED and SIGNED BY: SAL GARCIA MD DATE: 07/01/21 [id number] 0 Course & Med Decision Making: Course & Med Decision Making Pertinent Labs and Imaging studies reviewed. (See chart for details) Patient a 35-year-old male who presents with atraumatic left testicular pain starting this morning. Exam with testicular, epidymal, and spermatic cord tenderness. Prominent spermatic cord on R. We will check UA, GC/chlamydia urine, and testicular ultrasound. DDx includes epididymitis, orchitis, testicular torsion. No overlying skin changes to suggest Huong's gangrene. No palpable hernia. 1610 UA with a few RBCs, no WBC, No bacteria. Does not appear consistent with infection/urethritis. US shows a varicocele. good blood flow seen to both testes, not torsion. Varicocele most likely cause. GC/chlamydia pending. Will hold on any abx at this time. 1723 Clicker Disclaimer: Clicker Disclaimer: This electronic medical record was generated, in whole or in part, using a voice recognition dictation system. Departure Departure Impression: Primary Impression: Varicocele Additional Impression: Scrotum pain Disposition: HOME / SELF CARE / HOMELESS Condition: STABLE Referrals: RICHIE MCNAMARA PA-C (PCP) Schedule appointment this week to follow-up. Additional Instructions: Your ultrasound showed a varicocele. This is dilation of the veins that drain from the testicle. This can be very uncomfortable. Treatment is typically supportive with Tylenol, ibuprofen, and with jock support with compression shorts. If pain persists you may need to see a urologist. We did check for infection with gonorrhea and chlamydia. This will take several days to return. You will be called if they are positive. For pain tylenol and ibuprofen are best used on a schedule. Please alternate between the two. -Tylenol 1000 mg every 6 hours (do not exceed 4000 mg in one day) -Ibuprofen 400 mg every 6 hours. Take with food. Do not take for more than 1 week. Please follow-up with your PCP this week if your symptoms continue. If you develop fever/chills, severely worsening pain, or other new/concerning symptoms please return to the emergency department for re-evaluation. Please call one of the follow practice locations for urology follow up, although they may require a PCP referral. [facility] / [place], [place] [address] [place] [address] [place] [address] [place] [address] [place] [address] [facility], [address] [place] [address] KURT GAMBOA MD Jul 01, 2021 16:11
[2021-07-01 16:19] VITALS: BP 173/100
[2021-07-01 16:22] LABS: BILIRUBIN,URINE NEGATIVE (NEG); CLARITY,URINE CLEAR; COLOR,URINE YELLOW; NITRITE,URINE NEGATIVE (NEG); PH,URINE 5.5 (<5.0-8.0); PROTEIN,URINE NEGATIVE (NEG-TRACE); UROBILINOGEN,URINE 0.2 mg/dL (0.2 mg/dL)
[2021-07-01 16:32] LABS: BACTERIA,URINE 0 /HPF (0-FEW); RBC,URINE OCC /HPF (0-2); WBC,URINE 0 /HPF (0-4)
--- NOTE | 2021-07-01 17:14 | RAD ---
CLINICAL HISTORY: Reason: R testicular pain, atraumatic / Spl. Instructions: / History: COMPARISON: None available. TECHNIQUE: Ultrasound images of the scrotum was performed with rutledge-scale and color doppler. FINDINGS: The right testis measures 5.0 x 2.9 x 2.1 cm. The left testis measures 4.5 x 2.9 x 2.0 cm. Blood flow identified in the right and left testis. Minimal prominent vascularity identified in the r ight scrotum could be small varicocele. Trace bilateral hydroceles. IMPRESSION: 1. Minimal prominent vascularity identified in the right scrotum could be small varicocele. 2. Small bilateral hydroceles.. Electronically signed by: Sal Garcia MD (07/01/2021 5:11 PM) [id number]
== END 2021-07-01 17:43 | disposition home or self-care (01) ==
LOC: ER 14:34
DX: I86.1 Scrotal varices (principal); N50.82 Scrotal pain; I10 Essential (primary) hypertension; F17.200 Nicotine dependence, unspecified, uncomplicated; Z88.8 Allergy status to other drugs, medicaments and biological substances
CPT/HCPCS: 76870; 81001; 87491; 87591; 99284

== ENCOUNTER 2021-08-06 14:34 | Emergency (ER) | payer BC ==
[~2021-08-06] VITALS: Ht 188 cm; Wt 150.0 kg
[2021-08-06 15:09] VITALS: BP 143/81
[2021-08-06] MEDS ORDERED: MORPHINE SULFATE 10 MG/ML VIAL. ONE (15:25)
[2021-08-06] MEDS ORDERED: MORPHINE SULFATE 10 MG/ML VIAL. IM ONE (15:30)
[2021-08-06] MEDS ORDERED: LIDOCAINE 2% Multi-Dose 20 ML VIAL. IJ ONE (15:30)
--- NOTE | 2021-08-06 16:01 | PHYS DOC ---
Past Medical History Past Medical History: Hypertension Additional Past Medical Histor: SLEEP APNEA, ABDOMINAL AND INGUINAL HERNIAS (TRUONG NEGRON APRN) Past Surgical History: No Surgical History Additional Past Surgical Histo: left index finger (TRUONG NEGRON APRN) Smoking Status: Current Some Day Smoker Alcohol Use: None Drug Use: None (TRUONG NEGRON APRN) General Adult EDM: Chief Complaint: SKIN RASH/ABSCESS HPI: HPI: Patient is a 35 year old male presents with abscess on his left, buttocks. Patient states he has a history of abscesses and gets them often. Reporting pain 8/10. Pain is worse with sitting and improves when he is standing. Denies take anything prior to arrival for pain. Patient states "I am currently taking doxycycline to help prevent them from forming". History of hypertension. (TRUONG NEGRON APRN) Review of Systems: Review of Systems: ROS At least 10 ROS systems have been reviewed and are negative except as documented in the HPI. General: Negative except as outlined in HPI above. Skin: Negative except as outlined in HPI above. HEENT: Negative except as outlined in HPI above. Neck: Negative except as outlined in HPI above. Respiratory: Negative except as outlined in HPI above.. Cardiovascular: Negative except as outlined in HPI above. Abdomen: Negative except as outlined in HPI above. : Negative except as outlined in HPI above. Back/MSK: Negative except as outlined in HPI above. Neuro: Negative except as outlined in HPI above. Psych: Negative except as outlined in HPI above. (TRUONG NEGRON APRN) Heart Score: C/O Chest Pain: No Risk Factors: Risk Factors: DM, Current or recent (<one month) smoker, HTN, HLP, family history of CAD, obesity. Risk Scores: Score 0 - 3: 2.5% MACE over next 6 weeks - Discharge Home Score 4 - 6: 20.3% MACE over next 6 weeks - Admit for Clinical Observation Score 7 - 10: 72.7% MACE over next 6 weeks - Early Invasive Strategies (TRUONG NEGRON APRN) Current Medications: Current Medications Medications (Trade) Dose Ordered Sig/Charly Start Time Stop Time Status Last Admin Dose Admin Lidocaine HCl (Lidocaine 2% 20ml Vial) 20 ml 1X ONCE 08/06/21 15:30 08/06/21 15:33 DC 08/06/21 15:30 20 ML Morphine Sulfate (Morphine Sulfate) 10 mg 1X ONCE 08/06/21 15:30 08/06/21 15:33 DC 08/06/21 15:30 5 MG (TRUONG NEGRON APRN) Allergies: Allergies: Allergies Coded Allergies Type Severity Reaction Last Updated Verified lisinopril Adverse Reaction Intermediate 05/29/21 Yes Uncoded Allergies Type Severity Reaction Last Updated Verified CONTRAST Allergy Unknown 05/29/21 (TRUONG NEGRON APRN) Physical Exam: PE: Constitutional: Well developed, well nourished, no acute distress, non-toxic appearance. [] HENT: Normocephalic, atraumatic, bilateral external ears normal, oropharynx moist, no oral exudates, nose normal. [] Eyes: PERRLA, EOMI, conjunctiva normal, no discharge. [] Neck: Normal range of motion, no tenderness, supple, no stridor. [] Cardiovascular:Heart rate regular rhythm, no murmur [] Lungs & Thorax: Bilateral breath sounds clear to auscultation [] Abdomen: Bowel sounds normal, soft, no tenderness, no masses, no pulsatile masses. [] Skin: Abscess, left buttocks, tender, surrunding erythema, fluctuance Back: No tenderness, no CVA tenderness. [] Extremities: No tenderness, no cyanosis, no clubbing, ROM intact, no edema. [] Neurologic: Alert and oriented X 3, normal motor function, normal sensory function, no focal deficits noted. [] Psychologic: Affect normal, judgement normal, mood normal. (TRUONG NEGRON APRN) Current Patient Data: Vital Signs: Vital Signs Date Time Temp Pulse Resp B/P (MAP) Pulse Ox O2 Delivery O2 Flow Rate FiO2 08/06/21 15:09 98.8 118 22 143/81 (101) 94 Room Air 98.8 (TRUONG NEGRON APRN) EKG: EKG: [] (TRUONG NEGRON APRN) Radiology/Procedures: Radiology/Procedures: [] (TRUONG NEGRON APRN) Course & Med Decision Making: Course & Med Decision Making Pertinent Labs and Imaging studies reviewed. (See chart for details) [] 35-year-old male presents with abscess on left buttocks.. Wound was fluctuant, tender. Patient's pain was treated in the ER. I&D was performed. Wound was packed and covered with gauze. Aftercare instructions given. Follow- up with your PCP in 1 to 2 days for a wound check. Discussed signs of infections and return precautions. Patient verbalizes he understands discharge instructions. Sending patient home with antibiotic and pain medication. Ibuprofen for breakthrough pain. Patient is hemodynamically stable upon disposition. (TRUONG NEGRON APRN) Dragon Disclaimer: Dragon Disclaimer: This electronic medical record was generated, in whole or in part, using a voice recognition dictation system. (TRUONG NEGRON APRN) Departure Departure Impression: Primary Impression: Abscess Disposition: HOME / SELF CARE / HOMELESS Condition: STABLE Referrals: RICHIE MCNAMARA PA-C (PCP) Patient Instructions: Abscess, Care After, Abscess, [id number] Additional Instructions: You are seen in the emergency room for an abscess. Call your PCP make a follow- up appointment for 2 days for a wound check. Watch for signs of infection as di scussed. Return to emergency room if you have worsening symptoms or concerns. Make sure you take your antibiotic in full and as directed. Ibuprofen for pain. EMERGENCY DEPARTMENT GENERAL DISCHARGE INSTRUCTIONS Thank you for coming to [facility] Emergency Department (ED) today and trusting us with you care. We trust that you had a positive experience in our Emergency Department. If you wish to speak to the department management, you may call the Director at [phone]. YOUR FOLLOW UP INSTRUCTIONS ARE FOLLOWS: 1. Do you have a private Doctor? If you do not have a private doctor, please ask for a resource list of physicians or clinics that may be able to assist you with follow up care. 2. The Emergency Physicain has interpreted your x-rays. The X-Ray specialist will also review them. If there is a change in the findings, you will be notified in 48 hours when at all possible. 3. A lab test or culture has been done, your results will be reviewed and you will be notified if you need a change in treatment. ADDITIONAL INSTRUCTIONS AND INFORMATION: 1. Your care today has been supervised by a physician who is specially trained in emergency care. Many problems require more than one evaluation for a complete diagnosis and treatment. We recommend that you schedule your follow up appointment as recommended to ensure complete treatment of you illness or injury. If you are unable to obtain follow up care and continue to have a problem, or if your condition worsens, we recommend that you return to the ED. 2. We are not able to safely determine your condition over the phone nor are we able to give sound medical advice over the phone. For these safety reasons, if you call for medical advice we will ask you to come to the ED for further evaluation. 3. If you have any questions regarding these discharge instructions please call the ED at [phone]. SAFETY INFORMATION: In the interest of safety, wellness, and injury prevention; we encourage you to wear your sealbelt, if you smoke; quite smoking, and we encourage family to use a protective helmet for bicycling and other sporting events that present an increased risk for head injury. IF YOUR SYMPTOMS WORSEN OR NEW SYMPTOMS DEVELOP, OR YOU HAVE CONCERNS ABOUT YOUR CONDITION; OR IF YOUR CONDITION WORSENS WHILE YOU ARE WAITING FOR YOUR FOLLOW UP APPOINTMENT; EITHER CONTACT YOUR PRIMARY CARE DOCTOR, THE PHYSICIAN WHOSE NAME AND NUMBER YOU WERE GIVEN, OR RETURN TO THE ED IMMEDIATELY. Scripts Hydrocodone Bit/Acetaminophen (HYDROCODONE-APAP 5-325 ) 1 Tab Tablet 1 TAB PO PRN Q6HRS PRN for PAIN for 3 Days, #12 TAB 0 Refills Prov: ALIA LAW DO 08/06/21 Sulfamethoxazole/Trimethoprim (BACTRIM DS TABLET) 1 Each Tablet 1 TAB PO BID for abcess for 7 Days, #14 TAB 0 Refills Prov: TRUONG NEGRON APRN 08/06/21 Attending Signature I have participated in the care of this patient and I have reviewed and agree with all pertinent clinical information above including history, exam, and recommendations. (ALIA LAW DO) TRUONG NEGRON APRN Aug 06, 2021 16:01 ALIA LAW DO Aug 06, 2021 17:10
[2021-08-06] MEDS ORDERED: SULF1TAB24 PO (17:07)
[2021-08-06] MEDS ORDERED: HYDR-2761 PO (17:09)
== END 2021-08-06 17:20 | disposition home or self-care (01) ==
LOC: ER 14:34
DX: L02.31 Cutaneous abscess of buttock (principal); I10 Essential (primary) hypertension; F17.200 Nicotine dependence, unspecified, uncomplicated; Z91.041 Radiographic dye allergy status; Z88.6 Allergy status to analgesic agent; Z88.8 Allergy status to other drugs, medicaments and biological substances
CPT/HCPCS: 10060; 96372; 99283; J2270

== ENCOUNTER 2022-01-11 14:08 | Emergency (ER) | payer BC ==
[~2022-01-11] VITALS: Ht 188 cm; Wt 153.0 kg
[~2022-01-11 14:08] MED LIST changes: +HYDR-2761 PO
[2022-01-11 14:15] VITALS: BP 186/92
[2022-01-11] MEDS: LIDOCAINE 1%/EPI 1:100,000 20 ML VIAL. INJ ONE (14:48)
[2022-01-11] MEDS ORDERED: SULF1TAB24 PO (15:20)
--- NOTE | 2022-01-11 17:08 | PHYS DOC ---
Past Medical History Past Medical History: Hypertension Additional Past Medical Histor: SLEEP APNEA, ABDOMINAL AND INGUINAL HERNIAS Past Surgical History: No Surgical History Additional Past Surgical Histo: left index finger Smoking Status: Current Some Day Smoker Alcohol Use: None Drug Use: None General Adult EDM: Chief Complaint: ABSCESS HPI: HPI: Patient is a 36 year old male who presents with abscess on left buttocks. Patient states that he has had more than a dozen abscesses on his buttocks, he gets them lanced quite frequently at least once a year. He states that this abscess appeared a couple of weeks ago. He was hoping it would rupture on its own but it has not ruptured. He comes in for incision and drainage. He states that he would rather not trial on antibiotics, he states that it is quite painful and he would like it lanced. Review of Systems: Review of Systems: Constitutional: Denies fever or chills. [] Eyes: Denies change in visual acuity. [] HENT: Denies nasal congestion or sore throat. [] Respiratory: Denies cough or shortness of breath. [] Cardiovascular: Denies chest pain or edema. [] GI: Denies abdominal pain, nausea, vomiting, bloody stools or diarrhea. [] : Denies dysuria. [] Musculoskeletal: Denies back pain or joint pain. [] Integument: Positive abscess Neurologic: Denies headache, focal weakness or sensory changes. [] Endocrine: Denies polyuria or polydipsia. [] Lymphatic: Denies swollen glands. [] Psychiatric: Denies depression or anxiety. [] Heart Score: C/O Chest Pain: No Risk Factors: Risk Factors: DM, Current or recent (<one month) smoker, HTN, HLP, family history of CAD, obesity. Risk Scores: Score 0 - 3: 2.5% MACE over next 6 weeks - Discharge Home Score 4 - 6: 20.3% MACE over next 6 weeks - Admit for Clinical Observation Score 7 - 10: 72.7% MACE over next 6 weeks - Early Invasive Strategies Current Medications: Current Medications Medications (Trade) Dose Ordered Sig/Charly Start Time Stop Time Status Last Admin Dose Admin Lidocaine/ Epinephrine (LIDOCAINE 1%-EPI 1:100,000 Multi-Dose) 20 ml 1X ONCE 01/11/22 14:45 01/11/22 14:46 DC 4/16/22 14:48 20 ML Allergies: Allergies: Allergies Coded Allergies Type Severity Reaction Last Updated Verified lisinopril Adverse Reaction Intermediate 05/29/21 Yes Uncoded Allergies Type Severity Reaction Last Updated Verified CONTRAST Allergy Unknown 05/29/21 Physical Exam: PE: Constitutional: Well developed, well nourished, no acute distress, non-toxic appearance. [] HENT: Normocephalic, atraumatic, bilateral external ears normal, oropharynx moist, no oral exudates, nose normal. [] Eyes: PERRLA, EOMI, conjunctiva normal, no discharge. [] Neck: Normal range of motion, no tenderness, supple, no stridor. [] Cardiovascular:Heart rate regular rhythm, no murmur [] Lungs & Thorax: Bilateral breath sounds clear to auscultation [] Abdomen: Bowel sounds normal, soft, no tenderness, no masses, no pulsatile masses. [] Skin: Left upper buttocks with 6 cm nodule with area of fluctuance with minimal amounts of erythema and peeling skin. Back: No tenderness, no CVA tenderness. [] Extremities: No tenderness, no cyanosis, no clubbing, ROM intact, no edema. [] Neurologic: Alert and oriented X 3, normal motor function, normal sensory function, no focal deficits noted. [] Psychologic: Affect normal, judgement normal, mood normal. [] Current Patient Data: Vital Signs: Vital Signs Date Time Temp Pulse Resp B/P (MAP) Pulse Ox O2 Delivery O2 Flow Rate FiO2 01/11/22 14:15 98.5 108 20 186/92 (123) 96 Room Air 98.5 EKG: EKG: [] Radiology/Procedures: Radiology/Procedures: Incision and Drainage Procedure Note PRE-OP DIAGNOSIS: Abscess POST-OP DIAGNOSIS: Same PROCEDURE: incision and drainage of abscess Performing Physician: Dr. Chung PROCEDURE: A timeout protocol was performed prior to initiating the procedure. The area was prepared and draped in the usual, sterile manner. The site was anesthetized with 1% lidocaine with epinephrine. A cruciate incision along the local skin lines was made and the purulent material expressed. The abcess was explored thoroughly and sequestered pockets were opened. Bleeding was minimal. Packing: Quarter inch gauze Followup: The patient tolerated the procedure well without complications. Standard post-procedure care is explained and return precautions are given. Impression: 36-year-old male with abscess on left buttocks Course & Med Decision Making: Course & Med Decision Making Pertinent Labs and Imaging studies reviewed. (See chart for details) See above procedure note. Patient tolerated incision and drainage well. Patient will follow up with primary care physician in about 3 days, patient stated that he will follow-up. Patient seems quite experienced at incision and drainage of abscess. Patient was given Bactrim DS for 7 days as an outpatient. Patient was hemodynamically stable and doing well at the time of discharge. All questions answered. Dragon Disclaimer: Dragon Disclaimer: This electronic medical record was generated, in whole or in part, using a voice recognition dictation system. Departure Departure Impression: Primary Impression: Abscess, gluteal cleft Disposition: HOME / SELF CARE / HOMELESS Condition: GOOD Patient Instructions: Abscess, [id number] Additional Instructions: Follow-up with your primary care doctor in 3 to 5 days Scripts Sulfamethoxazole/Trimethoprim (BACTRIM DS TABLET) 1 Each Tablet 1 TAB PO BID, #14 TAB Prov: CLARITA CHUNG MD 01/11/22 CLARITA CHUNG MD Jan 11, 2022 17:08
== END 2022-01-11 15:24 | disposition home or self-care (01) ==
LOC: ER 14:08
DX: L02.31 Cutaneous abscess of buttock (principal); I10 Essential (primary) hypertension; F17.200 Nicotine dependence, unspecified, uncomplicated; Z91.041 Radiographic dye allergy status; Z88.8 Allergy status to other drugs, medicaments and biological substances
CPT/HCPCS: 10060; 99283; J3490; 99282